=== PATIENT | male | born 1975 | race Hispanic/Latino ===

== ENCOUNTER 2019-03-17 20:56 | Emergency (ER) | payer OTHER ==
[2019-03-17] MEDS ORDERED: ONDANSETRON HCL 4 MG/2 ML VIAL ONE (21:10)
[2019-03-17] MEDS ORDERED: SODIUM CHLORIDE 0.9% 1000ML 1,000 ML IV ONE ×2 (21:10→22:32)
[2019-03-17 21:26] LABS: BASOPHILS % (AUTO) 0.7 % (0.0-5.0); EOSINOPHILS % (AUTO) 0.8 % (0.0-8.0); HEMATOCRIT 36.2 % (42-54); LYMPHOCYTES % (AUTO) 27.4 % (21.0-51.0); MEAN CORPUSCULAR HEMOGLOBIN 29.4 pg (27.0-33.0); MEAN CORPUSCULAR HGB CONC 33.9 g/dL (32.0-36.0); MEAN CORPUSCULAR VOLUME 86.8 fL (79-99); MONOCYTES % (AUTO) 9.8 % (3.0-13.0); NEUTROPHILS % (AUTO) 61.3 % (40.0-77.0); NUCLEATED RED BLOOD CELLS 0.1 % (0.0-0.19); PLATELET COUNT (AUTO) 133 K/uL (130-400); RED BLOOD CELL COUNT(AUTO) 4.17 MIL/uL (4.50-6.20); RED CELL DISTRIBUTION WIDTH 19.7 % (11.0-15.5); WHITE BLOOD COUNT (AUTO) 4.1 K/uL (4.8-10.8)
[2019-03-17 21:38] LABS: CREATININE 1.1 mg/dL (0.5-1.5); POTASSIUM 3.4 mmol/L (3.5-5.1)
[2019-03-17 21:43] LABS: ALBUMIN 3.6 g/dL (3.5-5.0); BILIRUBIN,TOTAL 0.6 mg/dL (0.2-1.0); TOTAL PROTEIN, SERUM 7.8 g/dL (6.0-8.3)
[2019-03-17 22:16] LABS: APPEARANCE,URINE Clear (CLEAR); BILIRUBIN,URINE Small (NEGATIVE); COLOR,URINE Dark Yellow (YELLOW); GLUCOSE, URINE (UA) Negative (NEGATIVE); KETONES,URINE Trace mg/dL (NEGATIVE); LEUKOCYTE ESTERASE ,URINE Negative (NEGATIVE); NITRATE,URINE Negative (NEGATIVE); OCCULT BLOOD,URINE Negative (NEGATIVE); PROTEIN,URINE Trace mg/dL (NEGATIVE)
[2019-03-17] MEDS ORDERED: KETOROLAC TROMETHAMINE 15MG/ML ONE (22:30)
[2019-03-17 22:46] LABS: BACTERIA,URINE None Seen /HPF (None Seen); RBC,URINE None Seen /HPF (0-1); WBC,URINE None Seen /HPF (0-1)
[2019-03-17 22:47] LABS: MUCUS,URINE Rare LPF (None Seen); SQUAMOUS EPITHELIAL CELL,UR Few /HPF (0-2)
== END 2019-03-17 23:36 | disposition home or self-care (01) ==
LOC: EDH 20:56
DX: R10.12 Left upper quadrant pain (principal); F10.10 Alcohol abuse, uncomplicated; I10 Essential (primary) hypertension; R11.2 Nausea with vomiting, unspecified; Y90.9 Presence of alcohol in blood, level not specified
CPT/HCPCS: 36415; 80053; 81001; 83690; 85025; 96361; 96374; 96375; 99285; J1885; J2405; J7030 ×2

== ENCOUNTER 2020-03-26 20:03 | Inpatient (IN) | payer OTHER ==
[~2020-03-26] VITALS: Ht 182.9 cm; Wt 89.8 kg
[2020-03-26 20:46] LABS: BASOPHILS % (AUTO) 0.3 % (0.0-5.0); EOSINOPHILS % (AUTO) 0.6 % (0.0-8.0); HEMATOCRIT 22.8 % (42-54); LYMPHOCYTES % (AUTO) 13.9 % (21.0-51.0); MEAN CORPUSCULAR HEMOGLOBIN 35.3 pg (27.0-33.0); MEAN CORPUSCULAR HGB CONC 33.8 g/dL (32.0-36.0); MEAN CORPUSCULAR VOLUME 104.6 fL (79-99); MONOCYTES % (AUTO) 7.7 % (3.0-13.0); NEUTROPHILS % (AUTO) 76.4 % (40.0-77.0); PLATELET COUNT (AUTO) 86 K/uL (130-400); RED BLOOD CELL COUNT(AUTO) 2.18 MIL/uL (4.50-6.20); RED CELL DISTRIBUTION WIDTH 20.6 % (11.0-15.5); WHITE BLOOD COUNT (AUTO) 7.9 K/uL (4.8-10.8)
[2020-03-26 21:04] LABS: CREATININE 0.6 mg/dL (0.5-1.5); POTASSIUM 3.6 mmol/L (3.5-5.1)
[2020-03-26 21:11] LABS: BILIRUBIN,TOTAL 13.2 mg/dL (0.2-1.0); TOTAL PROTEIN, SERUM 5.8 g/dL (6.0-8.3)
[2020-03-26] MEDS ORDERED: SODIUM CHLORIDE 0.9% 100 ML IV ONE (21:39)
[2020-03-26 21:42] LABS: INR 1.16 (0.85-1.15); PARTIAL THROMBOPLASTIN TIME 31.4 SEC (26.3-35.5); PROTHROMBIN TIME 12.5 SEC (9.6-11.6)
[2020-03-26] MEDS ORDERED: PHYTONADIONE 10 MG/1 ML AMP ONE (21:56)
[2020-03-26] MEDS ORDERED: ONDANSETRON HCL 4 MG/2 ML VIAL IV PRN (22:30)
[2020-03-26] MEDS ORDERED: HYDRALAZINE HCL 20 MG/ML VIAL IV PRN (22:45)
[2020-03-27] VITALS (7 sets, daily range): BP systolic 93–127; BP diastolic 52–85
[2020-03-27] MEDS ORDERED: denies home meds (05:15)
[2020-03-27] MEDS: PANTOPRAZOLE SODIUM 80 MG in SODIUM CHLORIDE 0.9% 100 ML IV SCH ×4 (07:02→20:00)
[2020-03-27 07:22] LABS: APPEARANCE,URINE CLEAR (CLEAR); BILIRUBIN,URINE LARGE (NEGATIVE); COLOR,URINE ORANGE (YELLOW); GLUCOSE, URINE (UA) NEGATIVE (NEGATIVE); KETONES,URINE NEGATIVE (NEGATIVE); LEUKOCYTE ESTERASE ,URINE NEGATIVE (NEGATIVE); NITRATE,URINE NEGATIVE (NEGATIVE); OCCULT BLOOD,URINE NEGATIVE (NEGATIVE); PH,URINE 6.5 (5.0-8.0); PROTEIN,URINE NEGATIVE (NEGATIVE)
[2020-03-27 07:34] LABS: BACTERIA,URINE Rare /HPF (None Seen); RBC,URINE 0-1 /HPF (0-1); SQUAMOUS EPITHELIAL CELL,UR Rare /HPF (0-2); WBC,URINE 0-1 /HPF (0-1)
[2020-03-27 08:08] LABS: HEMATOCRIT 23.9 % (42-54)
--- NOTE | 2020-03-27 08:30 | NUR ---
PT CONSULT CALLED TO DR. BLANQUITA RINCON RN REGISTRY. WILL AWAIT RESPONSE. PT AT PRESENT IS OFFERING N/C AND WILL AWAIT FOR FURTHER ORDERS. PT IS NOT HAVING ANY BLOODY EMESIS OR STOOLS.
[2020-03-27] MEDS: LACTULOSE 20 GM/30 ML UDCUP PO SCH ×2 (09:00→21:23)
--- NOTE | 2020-03-27 09:45 | NUR ---
DR. JUARES CALLED ABOUT CONSULT AND WAS ADVISED ABOUT PATIENT'S DISCHARGE FROM OTHER FACILITY AND HISTORY OF PRIOR EGD. DR. JUARES WAS GOING TO SEE IF HE COULD GET THE RECORDS FROM OTHER FACILITY AND WOULD CALL BACK IF NEED TO.
[2020-03-27] MEDS ORDERED: MORPHINE SULFATE 2 MG/ML 1ML SYG IVP SCH (10:15)
[2020-03-27] MEDS: OCTREOTIDE ACETATE 1,250 MCG in SODIUM CHLORIDE 0.9% 250 ML IV SCH (11:02)
--- NOTE | 2020-03-27 11:49 | NUR ---
CHART CHECK COMPLETED. Pt IS A 44 Y.O. MALE ADMITTED SECONDARY TO LIVER CIRRHOSIS AND GBW. Pt HAS A PAST MEDICAL HISTORY SIGNIFICANT FOR PANCREATITIS, HYPERTENSION, ESOPHAGEAL VARICES, EGD 3 MONTHS AGO. Pt CURRENTLY NPO DUE TO ADMITTING DIAGNOSIS. PLEASE REQUEST A FORMAL SPEECH/SWALLOW EVALUATION IF Pt PRESENTS WITH +S/S OF ASPIRATION SUCH COUGH RESPONSE, THROAT CLEAR OR WET VOCAL QUALITY AT MEAL TIMES. Addendum: 03/27/20 at 1153 by PAOLA MAGANA, [facility] Amended: Links added.
[2020-03-27 13:01] LABS: HEMATOCRIT 25.4 % (42-54)
--- NOTE | 2020-03-27 18:00 | NUR ---
THERE HAS BEEN NO FURTHER RESPONSE OR ORDERS NOTED FROM DR. JUARES. PT HAD BEEN STARTED ON SANDOSTATIN DRIP EARLIER PER Aviva HESS NP.
--- NOTE | 2020-03-27 19:30 | NUR ---
ASSESSMENT PT AAOX4, COOPERATIVE, FOLLOWS COMMANDS. PERRLA,SCLERA JAUNDICED. SANDOSTATIN AND PROTONIX INFUSING WITHOUT DIFFICULTY. SCD'S PENDING. GBW REMAINS. HAND TREMORS NOTED. ASSESSMENT COMPLETED, SEE FLOW SHEET.
[2020-03-27 20:22] LABS: HEMATOCRIT 23.6 % (42-54)
[2020-03-28] MEDS: PANTOPRAZOLE SODIUM 80 MG in SODIUM CHLORIDE 0.9% 100 ML IV SCH ×2 (01:58→20:46)
[2020-03-28 03:27] VITALS: BP 120/80
[2020-03-28 05:10] LABS: BASOPHILS % (AUTO) 0.3 % (0.0-5.0); EOSINOPHILS % (AUTO) 0.4 % (0.0-8.0); HEMATOCRIT 21.3 % (42-54); LYMPHOCYTES % (AUTO) 8.2 % (21.0-51.0); MEAN CORPUSCULAR HEMOGLOBIN 35.6 pg (27.0-33.0); MEAN CORPUSCULAR HGB CONC 33.8 g/dL (32.0-36.0); MEAN CORPUSCULAR VOLUME 105.4 fL (79-99); PLATELET COUNT (AUTO) 71 K/uL (130-400); RED BLOOD CELL COUNT(AUTO) 2.02 MIL/uL (4.50-6.20); WHITE BLOOD COUNT (AUTO) 7.9 K/uL (4.8-10.8)
[2020-03-28 05:39] LABS: ALBUMIN 1.9 g/dL (3.5-5.0); CREATININE 0.8 mg/dL (0.5-1.5); POTASSIUM 4.2 mmol/L (3.5-5.1); TOTAL PROTEIN, SERUM 5.7 g/dL (6.0-8.3)
[2020-03-28 05:43] LABS: BILIRUBIN,TOTAL 18.5 mg/dL (0.2-1.0)
--- NOTE | 2020-03-28 07:00 | NUR ---
REPORT BEDSIDE REPORT GIVEN SJ RN, CHART REVIEWED.
[2020-03-28 07:40] VITALS: BP 104/66
[2020-03-28] MEDS: LACTULOSE 20 GM/30 ML UDCUP PO SCH ×2 (09:00→20:45)
[2020-03-28 10:31] LABS: HEMATOCRIT 22.4 % (42-54)
[2020-03-28 11:30] VITALS: BP 105/71
[2020-03-28] MEDS: CEFTRIAXONE SODIUM 1 GM IVP SCH ×2 (11:35→22:00)
--- NOTE | 2020-03-28 12:56 | NUR ---
DC PLAN VISITED WITH PATIENT. PATIENT LIVES ALONE. INDEPENDENT ABLE TO PERFORM ADL'S. PATIENT HAS NO SERVICES OR DME'S. FEELS SAFE TO RETURN HOME. SAID HE WILL USE THE BUS TO GO TO HOME. Addendum: 03/28/20 at 1258 by MEENU TAM RN CM Amended: Links added.
[2020-03-28 16:00] VITALS: BP 115/78
[2020-03-28 16:28] LABS: HEMATOCRIT 22.4 % (42-54)
[2020-03-28 20:06] VITALS: BP 101/62
[2020-03-28 21:54] LABS: HEMATOCRIT 23.4 % (42-54)
[2020-03-28] MEDS: OCTREOTIDE ACETATE 1,250 MCG in SODIUM CHLORIDE 0.9% 250 ML IV SCH (21:54)
[2020-03-28] MEDS: LACTATED RINGERS 1000ML 1,000 ML IV SCH (21:55)
[2020-03-28 23:00] VITALS: BP 119/80
[2020-03-29] MEDS: PANTOPRAZOLE SODIUM 80 MG in SODIUM CHLORIDE 0.9% 100 ML IV SCH ×2 (01:09→12:00)
[2020-03-29 03:01] VITALS: BP 99/63
[2020-03-29 04:10] LABS: BASOPHILS % (AUTO) 0.4 % (0.0-5.0); EOSINOPHILS % (AUTO) 2.2 % (0.0-8.0); LYMPHOCYTES % (AUTO) 13.2 % (21.0-51.0); MEAN CORPUSCULAR HEMOGLOBIN 36.1 pg (27.0-33.0); MEAN CORPUSCULAR HGB CONC 33.6 g/dL (32.0-36.0); MEAN CORPUSCULAR VOLUME 107.3 fL (79-99); MONOCYTES % (AUTO) 7.5 % (3.0-13.0); NEUTROPHILS % (AUTO) 75.5 % (40.0-77.0); PLATELET COUNT (AUTO) 72 K/uL (130-400); RED BLOOD CELL COUNT(AUTO) 2.05 MIL/uL (4.50-6.20); RED CELL DISTRIBUTION WIDTH 19.9 % (11.0-15.5); WHITE BLOOD COUNT (AUTO) 7.4 K/uL (4.8-10.8)
[2020-03-29 04:53] LABS: ALBUMIN 1.9 g/dL (3.5-5.0); POTASSIUM 3.4 mmol/L (3.5-5.1); TOTAL PROTEIN, SERUM 5.8 g/dL (6.0-8.3)
[2020-03-29 05:41] LABS: BILIRUBIN,TOTAL 19.3 mg/dL (0.2-1.0)
--- NOTE | 2020-03-29 07:05 | NUR ---
REPORT REPORT GIVEN TO SALEEM ARROYO
[2020-03-29 08:44] VITALS: BP 121/85
[2020-03-29 12:01] VITALS: BP 120/78
[2020-03-29] MEDS: CEFTRIAXONE SODIUM 1 GM IVP SCH (12:59)
[2020-03-29] MEDS: LACTULOSE 20 GM/30 ML UDCUP PO SCH (13:00)
[2020-03-29] MEDS: LACTATED RINGERS 1000ML 1,000 ML IV SCH (13:07)
[2020-03-29] MEDS ORDERED: LACTULOSE 20 GM/30 ML UDCUP PO SCH (13:30)
--- NOTE | 2020-03-29 13:47 | NUR ---
DR. BRADY IN ROOM SPEAKING WITH PT. RE:PLAN OF CARE AND DISCHARGE DISPOSITION. QUESTIONS ANSWERED BY DR. BRADY.
[2020-03-29] MEDS ORDERED: PANT40TA PO (14:52)
[2020-03-29] MEDS ORDERED: LACT10SO9 PO (14:52)
[2020-03-29] MEDS ORDERED: FERS325 PO (14:52)
--- NOTE | 2020-03-29 15:35 | NUR ---
HL REMOVED, CATHETER INTACT. DISCHARGE INSTRUCTIONS GIVEN, VERBALIZED UNDERSTANDING.
== END 2020-03-29 17:02 | disposition home or self-care (01) | DRG 434 ==
LOC: EDH 20:03 → OBSVTOIN 20:04 → EDHIP 20:04 → DAHIP 23:52
PROVIDERS: ADMIT Hospitalist; ATTEND Hospitalist
DX: K70.30 Alcoholic cirrhosis of liver without ascites (principal); D64.9 Anemia, unspecified; I10 Essential (primary) hypertension; D69.6 Thrombocytopenia, unspecified; R53.81 Other malaise
CPT/HCPCS: 36415; 71045; 76705; 80053; 81001; 82140; 82270; 83690; 83880; 85014; 85018; 85025; 85610; 85730; 86850; 86900; 86901; 87088; C9113; G0378; J0696; J2354; J3430; J7050

== ENCOUNTER 2020-05-14 20:29 | Inpatient (IN) | payer OTHER ==
[~2020-05-14] VITALS: Ht 182.9 cm; Wt 88.5 kg
[~2020-05-14 20:29] MED LIST: FERS325 PO; LACT10SO9 PO; PANT40TA PO; denies home meds
[2020-05-14 21:12] LABS: BASOPHILS % (AUTO) 0.3 % (0.0-5.0); EOSINOPHILS % (AUTO) 4.1 % (0.0-8.0); HEMATOCRIT 21.9 % (42-54); LYMPHOCYTES % (AUTO) 42.6 % (21.0-51.0); MEAN CORPUSCULAR HGB CONC 32.9 g/dL (32.0-36.0); MEAN CORPUSCULAR VOLUME 97.3 fL (79-99); MONOCYTES % (AUTO) 8.7 % (3.0-13.0); PLATELET COUNT (AUTO) 50 K/uL (130-400); RED BLOOD CELL COUNT(AUTO) 2.25 MIL/uL (4.50-6.20); RED CELL DISTRIBUTION WIDTH 19.6 % (11.0-15.5); WHITE BLOOD COUNT (AUTO) 3.5 K/uL (4.8-10.8)
[2020-05-14 21:38] LABS: CARBON DIOXIDE 17 mmol/L (21-32); CHLORIDE 108 mmol/L (101-111); GLOMERULAR FILTR. RATE CALC 86 mL/min (>60); GLUCOSE,RANDOM 109 mg/dL (70-105); INR 1.38 (0.85-1.15); PARTIAL THROMBOPLASTIN TIME 31.1 SEC (26.3-35.5); POTASSIUM 3.7 mmol/L (3.5-5.1); PROTHROMBIN TIME 14.7 SEC (9.6-11.6); SODIUM SERUM 137 mmol/L (136-145); UREA NITROGEN, BLOOD 8 mg/dL (7-18)
[2020-05-14 21:53] LABS: ALANINE AMINOTRANSFERASE 6 U/L (12-78); ALBUMIN 1.9 g/dL (3.5-5.0); ASPARTATE AMINOTRANSFERASE 65 U/L (10-37); BILIRUBIN,TOTAL 2.3 mg/dL (0.2-1.0); CREATINE KINASE, TOTAL 48 U/L (21-232); MYOGLOBIN 15 ng/mL (10-92); TOTAL PROTEIN, SERUM 6.3 g/dL (6.0-8.3); TROPONIN I < 0.04 ng/mL (0.00-0.06)
[2020-05-14 21:55] LABS: AMMONIA 108 umol/L (11-32)
[2020-05-14 22:15] LABS: APPEARANCE,URINE Clear (CLEAR); BILIRUBIN,URINE Negative (NEGATIVE); COLOR,URINE Yellow (YELLOW); GLUCOSE, URINE (UA) Negative (NEGATIVE); KETONES,URINE Negative (NEGATIVE); LEUKOCYTE ESTERASE ,URINE Negative (NEGATIVE); NITRATE,URINE Negative (NEGATIVE); OCCULT BLOOD,URINE Negative (NEGATIVE); PROTEIN,URINE Negative (NEGATIVE)
[2020-05-14] MEDS ORDERED: LACTULOSE 20 GM/30 ML UDCUP ONE (22:43)
[2020-05-14] MEDS ORDERED: PANTOPRAZOLE 40 MG/VIAL ONE (22:44)
[2020-05-14] MEDS ORDERED: ONDANSETRON HCL 4 MG/2 ML VIAL IV PRN (23:00)
[2020-05-14] MEDS ORDERED: ACETAMINOPHEN 325 MG TAB PO PRN (23:00)
[2020-05-15] MEDS ORDERED: SODIUM CHLORIDE 0.9% 250 ML IV ONE (01:16)
[2020-05-15] MEDS ORDERED: FUROSEMIDE 10 MG/ML 2ML VIAL ONE ×2 (01:36→12:32)
[2020-05-15 04:37] LABS: AMPHET/METH SCREEN,URINE NEGATIVE (NEGATIVE); BARBITURATE SCREEN, URINE NEGATIVE (NEGATIVE); BENZODIAZEPINES SCREEN,URINE NEGATIVE (NEGATIVE); CANNABINOID SCREEN,URINE NEGATIVE (NEGATIVE); COCAINE SCREEN,URINE NEGATIVE (NEGATIVE); OPIATE SCREEN,URINE NEGATIVE (NEGATIVE); PHENCYCLIDINE SCREEN,URINE NEGATIVE (NEGATIVE)
[2020-05-15 07:00] LABS: HEMATOCRIT 27.3 % (42-54); MEAN CORPUSCULAR HEMOGLOBIN 32.4 pg (27.0-33.0); MEAN CORPUSCULAR HGB CONC 33.7 g/dL (32.0-36.0); MEAN CORPUSCULAR VOLUME 96.1 fL (79-99); RED BLOOD CELL COUNT(AUTO) 2.84 MIL/uL (4.50-6.20); RED CELL DISTRIBUTION WIDTH 18.9 % (11.0-15.5); WHITE BLOOD COUNT (AUTO) 3.1 K/uL (4.8-10.8)
[2020-05-15 07:22] LABS: BILIRUBIN,TOTAL 2.9 mg/dL (0.2-1.0); CREATININE 0.9 mg/dL (0.5-1.5); POTASSIUM 3.5 mmol/L (3.5-5.1); TOTAL PROTEIN, SERUM 7.1 g/dL (6.0-8.3)
[2020-05-15] MEDS ORDERED: THIAMINE HCL 100 MG TABLET ONE (08:17)
[2020-05-15] MEDS ORDERED: LACTULOSE 20 GM/30 ML UDCUP ONE ×2 (08:17→20:55)
[2020-05-15] MEDS ORDERED: FAMOTIDINE/PF 20 MG/2 ML VIAL IV ONE ×2 (08:17→20:56)
[2020-05-15] MEDS ORDERED: MULTIVITAMINS W-IRON 50 ML DROPS PO SCH (09:00)
[2020-05-15] MEDS: FOLIC ACID 1 MG TABLET PO SCH (09:00)
[2020-05-15] MEDS: FE FUMARATE/FA/MV, MIN COMB#15 1 TAB PO SCH (09:00)
[2020-05-15] MEDS: THIAMINE HCL 100 MG TABLET PO SCH (09:00)
--- NOTE | 2020-05-15 12:53 | NUR ---
DC Plan Received call from Mehdi Arenas RN. States made call to point of contact on face sheet, Satish Dueñas ph: [phone], to provide update on patient due to PUI status. Per conversation with Satish Dueñas, Mehdi Arenas RN reported to that Satish is a database dba and is able to assist in providing retirement to patient if COVID test is negative. CD
--- NOTE | 2020-05-15 14:40 | NUR ---
CM NOTE/IA UNABLE TO MEET WITH PATIENT, NEXT OF KIN CALLED, DANIELLE SERNA. PER ROTARY BAR OPERATOR, PATIENT IS HOMELESS AND HASNT SEEN HIM IN YEARS. LAST HE SAW, PATIENT WAS INDEPENDENT WITH ADLS, HOMELESS, NO USE OF DME. PER ROTARY BAR OPERATOR, IF PATIENT IS COVID19 NEGATIVE, WILL HAVE A ROOM FOR PATIENT WHEN DISCHARGED FROM HOSPITAL. INFORMATION DEFERRED TO BOOKKEEPING CLERK AND CM ASSIGNED TO PATIENT. Addendum: 05/16/20 at 1009 by CAITY HARRY RN CM Amended: Links added.
[2020-05-15] MEDS ORDERED: POTASSIUM CHLORIDE 20MEQ/100ML 100 ML IV PRN (15:15)
[2020-05-15] MEDS ORDERED: POTASSIUM CHLORIDE 10% ELIXIR 20 MEQ/15 ML UDCUP PO PRN (15:15)
[2020-05-15] MEDS ORDERED: LIDOCAINE HCL-MPF 1% 2ML VIAL IJ PRN (15:15)
[2020-05-15] MEDS ORDERED: POTASSIUM CHLORIDE 20 MEQ ERTAB PO SCH (16:30)
[2020-05-15] MEDS: LACTULOSE 20 GM/30 ML UDCUP PO SCH (21:00)
[2020-05-15] MEDS: FAMOTIDINE/PF 20 MG/2 ML VIAL IV SCH (21:00)
[2020-05-16] MEDS ORDERED: FUROSEMIDE 10 MG/ML 2ML VIAL ONE (00:24)
[2020-05-16] MEDS ORDERED: ONDANSETRON HCL 4 MG/2 ML VIAL ONE (00:25)
[2020-05-16] MEDS: FUROSEMIDE 10 MG/ML 2ML VIAL IV SCH ×2 (00:45→12:54)
[2020-05-16 03:40] VITALS: BP 115/68
[2020-05-16 06:57] LABS: HEMATOCRIT 24.5 % (42-54); MEAN CORPUSCULAR HEMOGLOBIN 32.3 pg (27.0-33.0); MEAN CORPUSCULAR HGB CONC 33.9 g/dL (32.0-36.0); MEAN CORPUSCULAR VOLUME 95.3 fL (79-99); PLATELET COUNT (AUTO) 44 K/uL (130-400); RED BLOOD CELL COUNT(AUTO) 2.57 MIL/uL (4.50-6.20); RED CELL DISTRIBUTION WIDTH 19.3 % (11.0-15.5); WHITE BLOOD COUNT (AUTO) 2.4 K/uL (4.8-10.8)
[2020-05-16 07:08] LABS: ALBUMIN 1.7 g/dL (3.5-5.0); ASPARTATE AMINOTRANSFERASE 44 U/L (10-37); BILIRUBIN,TOTAL 3.2 mg/dL (0.2-1.0); CARBON DIOXIDE 22 mmol/L (21-32); CHLORIDE 108 mmol/L (101-111); GLOMERULAR FILTR. RATE CALC 86 mL/min (>60); GLUCOSE,RANDOM 98 mg/dL (70-105); PHOSPHORUS 3.6 mg/dL (2.5-4.9); SODIUM SERUM 139 mmol/L (136-145); TOTAL PROTEIN, SERUM 5.9 g/dL (6.0-8.3); UREA NITROGEN, BLOOD 11 mg/dL (7-18)
[2020-05-16 07:10] LABS: ALANINE AMINOTRANSFERASE < 6 U/L (12-78); AMMONIA 72 umol/L (11-32)
[2020-05-16 07:11] LABS: POTASSIUM 2.9 mmol/L (3.5-5.1)
[2020-05-16 07:27] LABS: BAND NEUTROPHILS % (MANUAL) 1 % (0-2); EOSINOPHILS % (MANUAL) 3 % (1-6); LYMPHOCYTES % (MANUAL) 29 % (22-44); MAN.DIFF COMMENT-IMPRESSION MANUAL DIFFERENTIAL; MONOCYTES % (MANUAL) 8 % (2-9); PLATELET MORPHOLOGY COMMENT MARKED DECREASE; SEGMENTED NEUTROPHILS % 59 % (40-70)
[2020-05-16 08:00] VITALS: BP 110/62
[2020-05-16] MEDS: FE FUMARATE/FA/MV, MIN COMB#15 1 TAB PO SCH (09:26)
[2020-05-16] MEDS: FAMOTIDINE/PF 20 MG/2 ML VIAL IV SCH ×2 (09:26→20:33)
[2020-05-16] MEDS: FOLIC ACID 1 MG TABLET PO SCH (09:26)
[2020-05-16] MEDS: POTASSIUM CHLORIDE 20 MEQ ERTAB PO PRN ×4 (09:26→18:58)
[2020-05-16] MEDS: LACTULOSE 20 GM/30 ML UDCUP PO SCH ×2 (09:26→20:33)
[2020-05-16] MEDS: THIAMINE HCL 100 MG TABLET PO SCH (09:26)
[2020-05-16 11:00] VITALS: BP 117/70
[2020-05-16 16:00] VITALS: BP 114/67
[2020-05-16 19:52] VITALS: BP 105/68
[2020-05-16 23:58] VITALS: BP 105/71
[2020-05-17] MEDS: FUROSEMIDE 10 MG/ML 2ML VIAL IV SCH ×2 (00:50→12:46)
[2020-05-17 04:00] VITALS: BP 94/57
[2020-05-17 04:17] LABS: BASOPHILS % (AUTO) 0.5 % (0.0-5.0); EOSINOPHILS % (AUTO) 3.6 % (0.0-8.0); HEMATOCRIT 24.3 % (42-54); LYMPHOCYTES % (AUTO) 40.5 % (21.0-51.0); MEAN CORPUSCULAR HGB CONC 33.3 g/dL (32.0-36.0); MONOCYTES % (AUTO) 12.3 % (3.0-13.0); NEUTROPHILS % (AUTO) 42.2 % (40.0-77.0); PLATELET COUNT (AUTO) 38 K/uL (130-400); RED BLOOD CELL COUNT(AUTO) 2.53 MIL/uL (4.50-6.20); RED CELL DISTRIBUTION WIDTH 18.5 % (11.0-15.5); WHITE BLOOD COUNT (AUTO) 2.2 K/uL (4.8-10.8)
[2020-05-17 04:27] LABS: ALBUMIN 1.6 g/dL (3.5-5.0); BILIRUBIN,TOTAL 2.6 mg/dL (0.2-1.0); MAGNESIUM 1.7 mg/dL (1.80-2.40); POTASSIUM 3.7 mmol/L (3.5-5.1); TOTAL PROTEIN, SERUM 5.7 g/dL (6.0-8.3)
[2020-05-17 08:32] VITALS: BP 115/74
[2020-05-17] MEDS ORDERED: LACT10SO9 PO (08:33)
[2020-05-17] MEDS: FE FUMARATE/FA/MV, MIN COMB#15 1 TAB PO SCH (08:51)
[2020-05-17] MEDS: THIAMINE HCL 100 MG TABLET PO SCH (08:51)
[2020-05-17] MEDS: LACTULOSE 20 GM/30 ML UDCUP PO SCH ×2 (08:51→15:18)
[2020-05-17] MEDS: FAMOTIDINE/PF 20 MG/2 ML VIAL IV SCH (08:51)
[2020-05-17] MEDS: FOLIC ACID 1 MG TABLET PO SCH (08:51)
[2020-05-17 11:23] VITALS: BP 100/62
--- NOTE | 2020-05-17 18:50 | NUR ---
PATIENT MADE CALL TO CONTACT # HIS YARD INSPECTOR IN THE CHART- TOLD PRIMARY NURSE AND ASH JERNIGAN THE DID NOT WANT TO HAVE HIGH RISK OB PICK HIM UP THAT HE WANTED TO GO TO [place], THAT HE" HAS A PLACE' HE CAN STAY. STATES WILL WALK TO THE BUS STOP AND THEN ITS A FREE SHUTTLE TO [place]. PT IS ALERT, ORIENTED, AND MOBILE,COULD BE HEARD TALKING THE THE 'YARD INSPECTOR ONT HE PHONE FROM HIS ROM RE HIS DISCHARGE PLANS Addendum: 05/17/20 at 1853 by ZOILA AMES RN CM Amended: Links added.
== END 2020-05-17 15:30 | disposition home or self-care (01) | DRG 433 ==
LOC: EDH 20:29 → EDHIP 20:30 → 3BH 05-16 02:43
PROVIDERS: ADMIT Internal Medicine; ATTEND Internal Medicine
PROC: 30233N1 Transfusion of Nonautologous Red Blood Cells into Peripheral Vein, Percutaneous Approach (ICD-10-PCS; principal; 2020-05-15)
DX: K70.30 Alcoholic cirrhosis of liver without ascites (principal); D62 Acute posthemorrhagic anemia; K72.90 Hepatic failure, unspecified without coma; K72.10 Chronic hepatic failure without coma; E87.6 Hypokalemia; Z91.19 Patient's noncompliance with other medical treatment and regimen; I10 Essential (primary) hypertension; D69.59 Other secondary thrombocytopenia; Z20.828 Contact with and (suspected) exposure to other viral communicable diseases
CPT/HCPCS: 36415; 71045; 80053; 80305; 81003; 82140; 82270; 82550; 83605; 83735; 83874; 84100; 84145; 84484; 85025; 85027; 85610; 85730; 86850; 86900; 86901; 86922; 87040; 87088; 93005; C9113; G0378; J1940; J2405; J3490; J7050; P9016; U0003

== ENCOUNTER 2020-08-25 21:40 | Emergency (ER) | payer MEDICAID, OTHER ==
[2020-08-25 21:56] LABS: HEMATOCRIT 26.5 % (42-54); LYMPHOCYTES % (AUTO) 37.3 % (21.0-51.0); MEAN CORPUSCULAR HEMOGLOBIN 29.1 pg (27.0-33.0); MEAN CORPUSCULAR HGB CONC 32.8 g/dL (32.0-36.0); MEAN CORPUSCULAR VOLUME 88.6 fL (79-99); MONOCYTES % (AUTO) 9.5 % (3.0-13.0); NEUTROPHILS % (AUTO) 49.9 % (40.0-77.0); PLATELET COUNT (AUTO) 62 K/uL (130-400); RED BLOOD CELL COUNT(AUTO) 2.99 MIL/uL (4.50-6.20); WHITE BLOOD COUNT (AUTO) 3.1 K/uL (4.8-10.8)
[2020-08-25 22:06] LABS: CREATININE 1.3 mg/dL (0.5-1.5); POTASSIUM 5.8 mmol/L (3.5-5.1)
[2020-08-25 22:10] LABS: ALBUMIN 2.9 g/dL (3.5-5.0); BILIRUBIN,TOTAL 1.8 mg/dL (0.2-1.0); INR 1.39 (0.85-1.15); PARTIAL THROMBOPLASTIN TIME 31.2 SEC (26.3-35.5); PROTHROMBIN TIME 14.8 SEC (9.6-11.6); TOTAL PROTEIN, SERUM 9.2 g/dL (6.0-8.3)
[2020-08-25 22:28] LABS: PLATELET MORPHOLOGY COMMENT DECREASED
[2020-08-26 00:34] LABS: CREATININE 1.2 mg/dL (0.5-1.5); POTASSIUM 3.8 mmol/L (3.5-5.1)
[2020-08-26 01:00] LABS: APPEARANCE,URINE Clear (CLEAR); BILIRUBIN,URINE Negative (NEGATIVE); COLOR,URINE Yellow (YELLOW); GLUCOSE, URINE (UA) Negative (NEGATIVE); KETONES,URINE Negative (NEGATIVE); LEUKOCYTE ESTERASE ,URINE Negative (NEGATIVE); NITRATE,URINE Negative (NEGATIVE); OCCULT BLOOD,URINE Negative (NEGATIVE); PH,URINE 5.5 (5.0-8.0); PROTEIN,URINE Negative (NEGATIVE)
[2020-08-26 01:08] LABS: AMPHET/METH SCREEN,URINE NEGATIVE (NEGATIVE); BARBITURATE SCREEN, URINE NEGATIVE (NEGATIVE); BENZODIAZEPINES SCREEN,URINE NEGATIVE (NEGATIVE); CANNABINOID SCREEN,URINE NEGATIVE (NEGATIVE); COCAINE SCREEN,URINE NEGATIVE (NEGATIVE); OPIATE SCREEN,URINE NEGATIVE (NEGATIVE); PHENCYCLIDINE SCREEN,URINE NEGATIVE (NEGATIVE)
== END 2020-08-26 05:43 | disposition home or self-care (01) ==
LOC: EDH 21:40
DX: K29.70 Gastritis, unspecified, without bleeding (principal); D61.818 Other pancytopenia; K76.89 Other specified diseases of liver; F10.10 Alcohol abuse, uncomplicated; I10 Essential (primary) hypertension; Z72.0 Tobacco use
CPT/HCPCS: 36415; 80048; 80053; 80305; 81003; 82140; 83690; 85025; 85610; 85730

== ENCOUNTER 2021-03-06 21:43 | Emergency (ER) | payer OTHER ==
[~2021-03-06] VITALS: Ht 182.9 cm; Wt 87.1 kg
[2021-03-06 22:02] VITALS: BP 110/66
[2021-03-06 23:53] VITALS: BP 115/62
[2021-03-06 23:58] LABS: BASOPHILS % (AUTO) 1.3 % (0.0-5.0); EOSINOPHILS % (AUTO) 4.2 % (0.0-8.0); HEMATOCRIT 26.1 % (42-54); LYMPHOCYTES % (AUTO) 52.6 % (21.0-51.0); MEAN CORPUSCULAR VOLUME 93.5 fL (79-99); MONOCYTES % (AUTO) 10.1 % (3.0-13.0); NEUTROPHILS % (AUTO) 31.5 % (40.0-77.0); PLATELET COUNT (AUTO) 62 K/uL (130-400); RED BLOOD CELL COUNT(AUTO) 2.79 MIL/uL (4.50-6.20); RED CELL DISTRIBUTION WIDTH 19.7 % (11.0-15.5); WHITE BLOOD COUNT (AUTO) 3.1 K/uL (4.8-10.8)
[2021-03-07 00:07] LABS: CREATININE 1.1 mg/dL (0.5-1.5); POTASSIUM 4.2 mmol/L (3.5-5.1)
[2021-03-07 00:12] LABS: ALBUMIN 2.5 g/dL (3.5-5.0); BILIRUBIN,TOTAL 1.5 mg/dL (0.2-1.0); MAGNESIUM 1.8 mg/dL (1.80-2.40); TOTAL PROTEIN, SERUM 7.2 g/dL (6.0-8.3)
[2021-03-07 00:17] LABS: INR 1.5 (0.85-1.15); PROTHROMBIN TIME 15.8 SEC (9.6-11.6)
[2021-03-07 00:18] LABS: PARTIAL THROMBOPLASTIN TIME 31.3 SEC (26.3-35.5)
[2021-03-07 00:46] LABS: PLATELET MORPHOLOGY COMMENT LARGE PLTS PRESENT
[2021-03-07 00:54] VITALS: BP 115/62
[2021-03-07 01:07] LABS: APPEARANCE,URINE Clear (CLEAR); BILIRUBIN,URINE Negative (NEGATIVE); COLOR,URINE Yellow (YELLOW); GLUCOSE, URINE (UA) Negative (NEGATIVE); KETONES,URINE Negative (NEGATIVE); LEUKOCYTE ESTERASE ,URINE Negative (NEGATIVE); NITRATE,URINE Negative (NEGATIVE); OCCULT BLOOD,URINE Negative (NEGATIVE); PROTEIN,URINE Negative (NEGATIVE); UROBILINOGEN,URINE 0.2 mg/dL (0.2-1.0)
[2021-03-07 02:15] VITALS: BP 112/65
[2021-03-07 03:43] VITALS: BP 118/68
[2021-03-07 07:37] VITALS: BP 110/70
== END 2021-03-07 10:55 | disposition left against medical advice (07) ==
LOC: EDH 21:46
DX: F10.129 Alcohol abuse with intoxication, unspecified (principal); R10.9 Unspecified abdominal pain
CPT/HCPCS: 36415; 80053; 81003; 82140; 82550; 83690; 83735; 83880; 84484; 85025; 85610; 85730; 93005

== ENCOUNTER 2021-07-09 18:11 | Emergency (ER) | payer OTHER ==
[~2021-07-09] VITALS: Ht 180.3 cm; Wt 99.8 kg
[2021-07-09] MEDS ORDERED: HYDROCODONE/ACETAMINOPHEN 5/325 MG TAB PO STA (19:30)
[2021-07-09] MEDS ORDERED: BACITRACIN 28.4 GM OINT TP STA (19:30)
[2021-07-09 20:20] LABS: BASOPHILS % (AUTO) 1.2 % (0.0-5.0); EOSINOPHILS % (AUTO) 2.6 % (0.0-8.0); HEMATOCRIT 24.7 % (42-54); LYMPHOCYTES % (AUTO) 26.4 % (21.0-51.0); MEAN CORPUSCULAR HEMOGLOBIN 32.5 pg (27.0-33.0); MEAN CORPUSCULAR HGB CONC 32.4 g/dL (32.0-36.0); MEAN CORPUSCULAR VOLUME 100.4 fL (79-99); NEUTROPHILS % (AUTO) 56.5 % (40.0-77.0); PLATELET COUNT (AUTO) 42 K/uL (130-400); RED BLOOD CELL COUNT(AUTO) 2.46 MIL/uL (4.50-6.20); RED CELL DISTRIBUTION WIDTH 20.7 % (11.0-15.5); WHITE BLOOD COUNT (AUTO) 3.5 K/uL (4.8-10.8)
[2021-07-09 20:34] LABS: ALBUMIN 2.6 g/dL (3.5-5.0); BILIRUBIN,TOTAL 3.9 mg/dL (0.2-1.0); POTASSIUM 3.9 mmol/L (3.5-5.1); TOTAL PROTEIN, SERUM 7.6 g/dL (6.0-8.3)
[2021-07-09 21:14] LABS: CREATININE 1.1 mg/dL (0.5-1.5)
[2021-07-09 23:10] VITALS: BP 102/64
== END 2021-07-09 23:21 | disposition home or self-care (01) ==
LOC: EDH 18:11
DX: L97.929 Non-pressure chronic ulcer of unspecified part of left lower leg with unspecified severity (principal); L97.919 Non-pressure chronic ulcer of unspecified part of right lower leg with unspecified severity; K70.30 Alcoholic cirrhosis of liver without ascites; D61.818 Other pancytopenia; Z79.899 Other long term (current) drug therapy
CPT/HCPCS: 36415; 80053; 85025

== ENCOUNTER 2021-07-10 15:17 | Inpatient (IN) | payer OTHER ==
[~2021-07-10] VITALS: Ht 180.3 cm; Wt 88.7 kg
[2021-07-10 15:55] LABS: BASOPHILS % (AUTO) 1.2 % (0.0-5.0); EOSINOPHILS % (AUTO) 1.7 % (0.0-8.0); NEUTROPHILS % (AUTO) 64.6 % (40.0-77.0); PLATELET COUNT (AUTO) 52 K/uL (130-400); RED CELL DISTRIBUTION WIDTH 20.3 % (11.0-15.5); WHITE BLOOD COUNT (AUTO) 4.2 K/uL (4.8-10.8)
[2021-07-10 16:04] LABS: CREATININE 1.1 mg/dL (0.5-1.5); POTASSIUM 3.9 mmol/L (3.5-5.1)
[2021-07-10 16:08] LABS: ALBUMIN 2.3 g/dL (3.5-5.0); BILIRUBIN,TOTAL 3.3 mg/dL (0.2-1.0); TOTAL PROTEIN, SERUM 6.8 g/dL (6.0-8.3)
[2021-07-10] MEDS ORDERED: CLINDAMYCIN IVPB 600MG/50ML 50 ML IV SCH (16:30)
[2021-07-10] MEDS ORDERED: 0.9%NACL 1000ML 1,000 ML IV ONE (16:30)
[2021-07-10] MEDS ORDERED: PANTOPRAZOLE 40 MG/VIAL ONE (16:39)
[2021-07-10] MEDS ORDERED: OCTREOTIDE ACETATE 100 MCG/ML AMP IVP ONE (17:00)
[2021-07-10 17:27] LABS: CRP QUANTITATIVE 16.9 mg/L (0.00-9.0)
[2021-07-10 17:35] LABS: INR 1.62 (0.85-1.15); PROTHROMBIN TIME 16.9 SEC (9.6-11.6)
[2021-07-10 17:36] LABS: PARTIAL THROMBOPLASTIN TIME 31.5 SEC (26.3-35.5)
[2021-07-10] MEDS ORDERED: PHYTONADIONE 10 MG in 0.9%NACL 50ML 50 ML IVPB ONE (18:00)
[2021-07-10] MEDS ORDERED: PROMETHAZINE HCL 25 MG/ML 1ML AMPULE IM ONE (18:00)
[2021-07-10] MEDS: OCTREOTIDE ACETATE 1,000 MCG in DEXTROSE 5%-WATER 195 ML IV SCH (18:40)
[2021-07-10] MEDS ORDERED: CHLORDIAZEPOXIDE HCL 25 MG CAP PO PRN (19:00)
[2021-07-10] MEDS ORDERED: PHARMACY COMMUNICATION MISC PRN (19:00)
[2021-07-10] MEDS ORDERED: LORAZEPAM 2 MG/ML 1 ML VIAL IVP PRN (19:00)
[2021-07-10] MEDS ORDERED: PROMETHAZINE HCL 25 MG TABLET PO PRN (19:00)
[2021-07-10 19:24] LABS: HEMATOCRIT 18.1 % (42-54)
[2021-07-10 19:37] LABS: MAGNESIUM 1.5 mg/dL (1.80-2.40); PHOSPHORUS 3.7 mg/dL (2.5-4.9)
[2021-07-10] MEDS ORDERED: MAGNESIUM 2GM PREMIX 50ML 50 ML IV ONE (20:18)
[2021-07-10] MEDS: PANTOPRAZOLE 40MG INJ 80 MG in 0.9%NACL 100ML 100 ML IV SCH (20:20)
[2021-07-10] MEDS: THIAMINE HCL 100 MG, FOLIC ACID 1 MG, M.V.I. IV [ADULT] 10 ML in 0.9%NACL 1000ML 1,000 ML IV SCH (20:20)
[2021-07-10] MEDS: LACTULOSE 20 GM/30 ML UDCUP NG SCH (21:00)
[2021-07-10] MEDS ORDERED: PANTOPRAZOLE 40 MG/VIAL IVP SCH (21:00)
[2021-07-10] MEDS ORDERED: LACTULOSE 20 GM/30 ML UDCUP ONE (21:24)
[2021-07-10] MEDS ORDERED: MAGNESIUM 2GM PREMIX 50ML 50 ML IV PRN (21:30)
[2021-07-10] MEDS ORDERED: ERYTHROMYCIN LACTOBIONATE 250 MG in 0.9%NACL 100ML 100 ML IV ONE (22:30)
[2021-07-10 23:37] LABS: AMPHET/METH SCREEN,URINE NEGATIVE (NEGATIVE); BARBITURATE SCREEN, URINE NEGATIVE (NEGATIVE); BENZODIAZEPINES SCREEN,URINE POSITIVE (NEGATIVE); CANNABINOID SCREEN,URINE NEGATIVE (NEGATIVE); COCAINE SCREEN,URINE NEGATIVE (NEGATIVE); OPIATE SCREEN,URINE NEGATIVE (NEGATIVE); PHENCYCLIDINE SCREEN,URINE NEGATIVE (NEGATIVE)
[2021-07-11] VITALS (12 sets, daily range): BP systolic 132–152; BP diastolic 80–100
[2021-07-11] MEDS: CLINDAMYCIN IVPB 600MG/50ML 50 ML IV SCH ×2 (01:17→09:51)
[2021-07-11] MEDS: PANTOPRAZOLE 40MG INJ 80 MG in 0.9%NACL 100ML 100 ML IV SCH ×2 (04:53→13:47)
[2021-07-11] MEDS: LACTULOSE 20 GM/30 ML UDCUP NG SCH ×3 (06:30→22:00)
[2021-07-11 07:46] LABS: BASOPHILS % (AUTO) 0.8 % (0.0-5.0); EOSINOPHILS % (AUTO) 0.8 % (0.0-8.0); HEMATOCRIT 28.6 % (42-54); LYMPHOCYTES % (AUTO) 13.8 % (21.0-51.0); MEAN CORPUSCULAR HEMOGLOBIN 31.1 pg (27.0-33.0); MEAN CORPUSCULAR HGB CONC 32.9 g/dL (32.0-36.0); MEAN CORPUSCULAR VOLUME 94.7 fL (79-99); PLATELET COUNT (AUTO) 48 K/uL (130-400); RED BLOOD CELL COUNT(AUTO) 3.02 MIL/uL (4.50-6.20); RED CELL DISTRIBUTION WIDTH 19.3 % (11.0-15.5)
[2021-07-11 08:05] LABS: ALBUMIN 2.4 g/dL (3.5-5.0); BILIRUBIN,TOTAL 6.6 mg/dL (0.2-1.0); CREATININE 0.9 mg/dL (0.5-1.5); MAGNESIUM 1.9 mg/dL (1.80-2.40); POTASSIUM 4.2 mmol/L (3.5-5.1); TOTAL PROTEIN, SERUM 6.9 g/dL (6.0-8.3)
[2021-07-11] MEDS ORDERED: CEFTRIAXONE 1G VIAL IVP SCH (12:00)
[2021-07-11] MEDS ORDERED: OCTREOTIDE ACETATE 1,250 MCG in 0.9% NACL 250ML 250 ML IV SCH (13:00)
[2021-07-11] MEDS ORDERED: PHYTONADIONE 10 MG in 0.9%NACL 50ML 50 ML IVPB SCH (13:00)
[2021-07-11] MEDS: OCTREOTIDE ACETATE 1,000 MCG in DEXTROSE 5%-WATER 195 ML IV SCH (13:47)
[2021-07-11] MEDS: CEFTRIAXONE 1G VIAL IVP SCH (13:58)
[2021-07-11 14:21] LABS: INR 1.32 (0.85-1.15)
[2021-07-11 14:23] LABS: PARTIAL THROMBOPLASTIN TIME 31.4 SEC (26.3-35.5)
[2021-07-11 14:42] LABS: HEMATOCRIT 25.2 % (42-54)
[2021-07-11] MEDS ORDERED: PHYTONADIONE 10 MG in 0.9%NACL 50ML 50 ML IVPB ONE (14:45)
[2021-07-11] MEDS ORDERED: HYDROMORPHONE 0.5 MG SYG (0.5MG/0.5ML) ONE (15:03)
[2021-07-11] MEDS: THIAMINE HCL 100 MG, FOLIC ACID 1 MG, M.V.I. IV [ADULT] 10 ML in 0.9%NACL 1000ML 1,000 ML IV SCH (20:00)
[2021-07-11] MEDS: HYDROMORPHONE 0.5 MG SYG (0.5MG/0.5ML) IVP PRN (23:22)
[2021-07-11 23:36] LABS: HEMATOCRIT 22.4 % (42-54)
[2021-07-12] VITALS (23 sets, daily range): BP systolic 114–150; BP diastolic 60–91
[2021-07-12] MEDS: PANTOPRAZOLE 40MG INJ 80 MG in 0.9%NACL 100ML 100 ML IV SCH ×3 (00:35→20:07)
[2021-07-12 04:09] LABS: EOSINOPHILS % (AUTO) 3.9 % (0.0-8.0); HEMATOCRIT 25.8 % (42-54); LYMPHOCYTES % (AUTO) 26.2 % (21.0-51.0); MEAN CORPUSCULAR HEMOGLOBIN 31.6 pg (27.0-33.0); MEAN CORPUSCULAR HGB CONC 32.2 g/dL (32.0-36.0); MEAN CORPUSCULAR VOLUME 98.1 fL (79-99); MONOCYTES % (AUTO) 12.5 % (3.0-13.0); NEUTROPHILS % (AUTO) 56.1 % (40.0-77.0); PLATELET COUNT (AUTO) 44 K/uL (130-400); RED BLOOD CELL COUNT(AUTO) 2.63 MIL/uL (4.50-6.20); RED CELL DISTRIBUTION WIDTH 19.7 % (11.0-15.5); WHITE BLOOD COUNT (AUTO) 3.1 K/uL (4.8-10.8)
[2021-07-12 04:18] LABS: INR 1.32 (0.85-1.15)
[2021-07-12 04:20] LABS: PARTIAL THROMBOPLASTIN TIME 30.3 SEC (26.3-35.5)
[2021-07-12 04:25] LABS: ALBUMIN 2.3 g/dL (3.5-5.0); BILIRUBIN,TOTAL 8.4 mg/dL (0.2-1.0); CREATININE 0.9 mg/dL (0.5-1.5); POTASSIUM 4.3 mmol/L (3.5-5.1)
[2021-07-12] MEDS: LACTULOSE 20 GM/30 ML UDCUP NG SCH ×3 (05:00→20:07)
[2021-07-12] MEDS: HYDROMORPHONE 0.5 MG SYG (0.5MG/0.5ML) IVP PRN ×2 (07:51→19:14)
[2021-07-12 09:13] LABS: HEPATITIS Bs ANTIGEN SCREEN P Negative (Negative)
[2021-07-12] MEDS ORDERED: COMPOUND IV REFRIGERATED 1 EACH IVSOLN MISC PRN (12:00)
[2021-07-12] MEDS: CEFTRIAXONE 1G VIAL IVP SCH (12:39)
[2021-07-12] MEDS ORDERED: FENTANYL CITRATE PF 50 MCG/1 ML 2ML VIAL ONE (14:01)
[2021-07-12] MEDS ORDERED: PROPOFOL 10 MG/ML 20ML VIAL IV ONE (14:01)
[2021-07-12] MEDS ORDERED: MIDAZOLAM HCL 1 MG/ML 2ML VIAL ONE (14:01)
[2021-07-12] MEDS: THIAMINE HCL 100 MG, FOLIC ACID 1 MG, M.V.I. IV [ADULT] 10 ML in 0.9%NACL 1000ML 1,000 ML IV SCH (20:07)
[2021-07-13] VITALS (11 sets, daily range): BP systolic 121–137; BP diastolic 70–88
[2021-07-13] MEDS: HYDROMORPHONE 0.5 MG SYG (0.5MG/0.5ML) IVP PRN ×3 (00:44→19:55)
[2021-07-13 03:50] LABS: HEMATOCRIT 22.6 % (42-54); MEAN CORPUSCULAR HGB CONC 32.7 g/dL (32.0-36.0); MEAN CORPUSCULAR VOLUME 97.8 fL (79-99); RED BLOOD CELL COUNT(AUTO) 2.31 MIL/uL (4.50-6.20); RED CELL DISTRIBUTION WIDTH 18.7 % (11.0-15.5); WHITE BLOOD COUNT (AUTO) 3.6 K/uL (4.8-10.8)
[2021-07-13 04:16] LABS: CREATININE 0.9 mg/dL (0.5-1.5); POTASSIUM 3.8 mmol/L (3.5-5.1)
[2021-07-13] MEDS: LACTULOSE 20 GM/30 ML UDCUP NG SCH ×3 (05:09→19:55)
[2021-07-13] MEDS: PANTOPRAZOLE 40MG INJ 80 MG in 0.9%NACL 100ML 100 ML IV SCH (08:00)
[2021-07-13] MEDS: LEVOFLOXACIN 500 MG TABLET PO SCH (09:31)
[2021-07-13] MEDS: RIFAXIMIN 550 MG TABLET PO SCH ×2 (09:31→19:54)
[2021-07-13] MEDS: PANTOPRAZOLE 40 MG TAB DR PO SCH ×2 (09:31→16:43)
[2021-07-13] MEDS: FOLIC ACID 1 MG TABLET PO SCH (10:33)
[2021-07-13] MEDS: MULTIVITAMIN TABLET PO SCH (10:33)
[2021-07-13] MEDS ORDERED: THIAMINE HCL 100 MG TABLET ONE (19:44)
[2021-07-13] MEDS: THIAMINE HCL 100 MG TABLET PO SCH (19:54)
[2021-07-14] VITALS (7 sets, daily range): BP systolic 116–127; BP diastolic 67–87
[2021-07-14] MEDS: HYDROMORPHONE 0.5 MG SYG (0.5MG/0.5ML) IVP PRN ×3 (03:25→22:56)
[2021-07-14] MEDS: PANTOPRAZOLE 40 MG TAB DR PO SCH ×2 (05:45→16:19)
[2021-07-14] MEDS: MULTIVITAMIN TABLET PO SCH (08:31)
[2021-07-14] MEDS: RIFAXIMIN 550 MG TABLET PO SCH ×2 (08:31→20:54)
[2021-07-14] MEDS: FOLIC ACID 1 MG TABLET PO SCH (08:31)
[2021-07-14] MEDS: LEVOFLOXACIN 500 MG TABLET PO SCH (08:31)
[2021-07-14] MEDS: THIAMINE HCL 100 MG TABLET PO SCH ×2 (08:31→20:53)
[2021-07-14] MEDS: LACTULOSE 20 GM/30 ML UDCUP NG SCH ×2 (08:32→20:52)
[2021-07-14 12:09] LABS: HEMATOCRIT 23.8 % (42-54)
[2021-07-15 04:07] VITALS: BP 117/64
[2021-07-15 07:58] VITALS: BP 117/68
[2021-07-15] MEDS: LEVOFLOXACIN 500 MG TABLET PO SCH (08:13)
[2021-07-15] MEDS: FOLIC ACID 1 MG TABLET PO SCH (08:14)
[2021-07-15] MEDS: LACTULOSE 20 GM/30 ML UDCUP NG SCH (08:14)
[2021-07-15] MEDS: PANTOPRAZOLE 40 MG TAB DR PO SCH (08:14)
[2021-07-15] MEDS: MULTIVITAMIN TABLET PO SCH (08:14)
[2021-07-15] MEDS: RIFAXIMIN 550 MG TABLET PO SCH (08:14)
[2021-07-15] MEDS: THIAMINE HCL 100 MG TABLET PO SCH (08:14)
[2021-07-15 08:40] LABS: BASOPHILS % (AUTO) 0.7 % (0.0-5.0); EOSINOPHILS % (AUTO) 5.8 % (0.0-8.0); HEMATOCRIT 24.1 % (42-54); LYMPHOCYTES % (AUTO) 19.5 % (21.0-51.0); MEAN CORPUSCULAR HEMOGLOBIN 31.6 pg (27.0-33.0); MEAN CORPUSCULAR HGB CONC 32.4 g/dL (32.0-36.0); MEAN CORPUSCULAR VOLUME 97.6 fL (79-99); MONOCYTES % (AUTO) 19.9 % (3.0-13.0); NEUTROPHILS % (AUTO) 53.4 % (40.0-77.0); PLATELET COUNT (AUTO) 52 K/uL (130-400); RED BLOOD CELL COUNT(AUTO) 2.47 MIL/uL (4.50-6.20); RED CELL DISTRIBUTION WIDTH 18.8 % (11.0-15.5); WHITE BLOOD COUNT (AUTO) 2.8 K/uL (4.8-10.8)
[2021-07-15] MEDS ORDERED: LACT10SO9 PO (09:04)
[2021-07-15] MEDS ORDERED: PANT40TA PO (09:04)
[2021-07-15] MEDS ORDERED: CIPR500T10 PO (09:04)
[2021-07-15] MEDS ORDERED: THIA100T91 PO (09:04)
[2021-07-15 09:08] LABS: RETICULOCYTE % (AUTO) 3.6 % (0.42-2.23)
[2021-07-15 09:12] LABS: POTASSIUM 3.9 mmol/L (3.5-5.1)
[2021-07-15 09:13] LABS: INR 1.85 (0.85-1.15); PROTHROMBIN TIME 19.1 SEC (9.6-11.6)
[2021-07-15 09:15] LABS: PARTIAL THROMBOPLASTIN TIME 35.6 SEC (26.3-35.5)
[2021-07-15 09:19] LABS: % IRON SATURATION 13.7 % (30-44)
[2021-07-15 09:26] LABS: ALBUMIN 2.2 g/dL (3.5-5.0); BILIRUBIN,TOTAL 4.6 mg/dL (0.2-1.0); THYROID STIMULATING HORMONE 5.27 uIU/mL (0.36-3.74); TOTAL PROTEIN, SERUM 6.5 g/dL (6.0-8.3)
[2021-07-15] MEDS ORDERED: COMPOUND IV MISC 1 EACH IVSOLN MISC PRN (09:30)
[2021-07-15 09:46] LABS: BAND NEUTROPHILS % (MANUAL) 2 % (0-2); LYMPHOCYTES % (MANUAL) 24 % (22-44); MAN.DIFF COMMENT-IMPRESSION MANUAL DIFFERENTIAL; MONOCYTES % (MANUAL) 11 % (2-9); SEGMENTED NEUTROPHILS % 63 % (40-70)
[2021-07-15 09:47] LABS: PLATELET MORPHOLOGY COMMENT DECREASED
[2021-07-15] MEDS ORDERED: EPOETIN ALFA-EPBX (NON-ESRD) 10,000 UNIT/ML VIAL SQ SCH (10:00)
[2021-07-15 10:24] VITALS: BP 118/67
[2021-07-15] MEDS ORDERED: IRON SUCROSE COMPLEX 500 MG in 0.9% NACL 250ML 250 ML IV SCH (10:30)
[2021-07-15] MEDS: HYDROMORPHONE 0.5 MG SYG (0.5MG/0.5ML) IVP PRN (11:17)
== END 2021-07-15 16:00 | disposition home or self-care (01) | DRG 378 ==
LOC: EDH 15:17 → EDHIP 15:18 → 2DH 07-11 08:46 → 4CH 07-13 11:00
PROVIDERS: ADMIT Hospitalist; ATTEND Hospitalist
PROC: 30233K1 Transfusion of Nonautologous Frozen Plasma into Peripheral Vein, Percutaneous Approach (ICD-10-PCS; principal; 2021-07-10)
PROC: 30233N1 Transfusion of Nonautologous Red Blood Cells into Peripheral Vein, Percutaneous Approach (ICD-10-PCS; 2021-07-10)
PROC: 30233R1 Transfusion of Nonautologous Platelets into Peripheral Vein, Percutaneous Approach (ICD-10-PCS; 2021-07-10)
PROC: 0DJ08ZZ Inspection of Upper Intestinal Tract, Via Natural or Artificial Opening Endoscopic (ICD-10-PCS; 2021-07-12)
DX: K29.01 Acute gastritis with bleeding (principal); D62 Acute posthemorrhagic anemia; K56.609 Unspecified intestinal obstruction, unspecified as to partial versus complete obstruction; K76.6 Portal hypertension; L03.115 Cellulitis of right lower limb; L03.116 Cellulitis of left lower limb; D68.4 Acquired coagulation factor deficiency; D61.818 Other pancytopenia; K31.89 Other diseases of stomach and duodenum; K70.30 Alcoholic cirrhosis of liver without ascites; K72.90 Hepatic failure, unspecified without coma; I10 Essential (primary) hypertension; F32.A Depression, unspecified; Z20.822 Contact with and (suspected) exposure to COVID-19; Y90.8 Blood alcohol level of 240 mg/100 ml or more; F10.229 Alcohol dependence with intoxication, unspecified; K44.9 Diaphragmatic hernia without obstruction or gangrene; K21.00 Gastro-esophageal reflux disease with esophagitis, without bleeding; R16.1 Splenomegaly, not elsewhere classified; D50.9 Iron deficiency anemia, unspecified; F43.10 Post-traumatic stress disorder, unspecified; Z87.891 Personal history of nicotine dependence; Z59.00 Homelessness unspecified; Z82.3 Family history of stroke; Z80.0 Family history of malignant neoplasm of digestive organs
CPT/HCPCS: 36415; 36430; 43235; 71045; 74018; 74176; 80048; 80053; 80305; 82140; 82728; 82948; 83540; 83550; 83735; 83880; 84100; 84145; 84443; 84484; 85014; 85018; 85025; 85027; 85045; 85610; 85730; 86140; 86701; 86804; 86850; 86900; 86901; 86923; 86927; 87040; 87340; 87390; 87522; 87635; 93005; 99291; 99292; A4606; C9113; C9803; G0378; J0696; J1170; J1364; J1756; J2060; J2250; J2354; J2704; J3010; J3411; J3430; J3475; J3490; J7030; J7050; J7060; P9016; P9017; P9034

== ENCOUNTER 2021-08-09 07:55 | Inpatient (IN) | payer MEDICAID, OTHER ==
[~2021-08-09] VITALS: Ht 167.6 cm; Wt 97.8 kg
[~2021-08-09 07:55] MED LIST changes: +CIPR500T10 PO; -FERS325 PO; +THIA100T91 PO; -denies home meds
[2021-08-09 08:43] LABS: EOSINOPHILS % (AUTO) 1.1 % (0.0-8.0); HEMATOCRIT 24.8 % (42-54); LYMPHOCYTES % (AUTO) 19.8 % (21.0-51.0); MEAN CORPUSCULAR HEMOGLOBIN 31.3 pg (27.0-33.0); MEAN CORPUSCULAR HGB CONC 31.5 g/dL (32.0-36.0); MEAN CORPUSCULAR VOLUME 99.6 fL (79-99); MONOCYTES % (AUTO) 12.3 % (3.0-13.0); NEUTROPHILS % (AUTO) 64.2 % (40.0-77.0); PLATELET COUNT (AUTO) 72 K/uL (130-400); RED BLOOD CELL COUNT(AUTO) 2.49 MIL/uL (4.50-6.20); RED CELL DISTRIBUTION WIDTH 19.8 % (11.0-15.5); WHITE BLOOD COUNT (AUTO) 3.6 K/uL (4.8-10.8)
[2021-08-09 09:36] LABS: CREATININE 0.8 mg/dL (0.5-1.5); POTASSIUM 3.4 mmol/L (3.5-5.1)
[2021-08-09 09:41] LABS: ALBUMIN 2.3 g/dL (3.5-5.0); BILIRUBIN,TOTAL 4.3 mg/dL (0.2-1.0)
[2021-08-09] MEDS ORDERED: IOHEXOL-350 75 ML VIAL IV ONE (10:43)
[2021-08-09] MEDS ORDERED: ONDANSETRON 4MG INJ IVP SCH (12:00)
[2021-08-09] MEDS ORDERED: MORPHINE 2 MG SYG IVP SCH ×2 (12:00→19:00)
[2021-08-09] MEDS ORDERED: MORPHINE 2 MG SYG ONE (12:04)
[2021-08-09] MEDS ORDERED: ONDANSETRON 4MG INJ ONE (12:04)
[2021-08-09] MEDS ORDERED: ACETAMINOPHEN 325 MG TAB PO PRN (12:30)
[2021-08-09] MEDS: LACTULOSE 20 GM/30 ML UDCUP PO SCH ×2 (13:00→20:15)
[2021-08-09] MEDS ORDERED: LIDOCAINE HCL-MPF 1% 2ML VIAL IV PRN (13:00)
[2021-08-09] MEDS ORDERED: POTASSIUM CHLORIDE 20MEQ/100ML 100 ML IV PRN (13:00)
[2021-08-09] MEDS: PANTOPRAZOLE 40MG INJ 80 MG in 0.9%NACL 100ML 100 ML IV SCH ×2 (13:53→21:36)
[2021-08-09] MEDS ORDERED: OCTREOTIDE ACETATE 1,250 MCG in 0.9% NACL 250ML 250 ML IV SCH (14:30)
[2021-08-09] MEDS ORDERED: PHARMACY COMMUNICATION MISC PRN ×2 (14:30)
[2021-08-09] MEDS ORDERED: CHLORDIAZEPOXIDE HCL 25 MG CAP PO PRN ×2 (14:30)
[2021-08-09 16:30] LABS: HEMATOCRIT 21.3 % (42-54)
[2021-08-09 16:44] LABS: INR 1.54 (0.85-1.15); PROTHROMBIN TIME 16.1 SEC (9.6-11.6)
[2021-08-09 20:00] VITALS: BP 146/86
[2021-08-10] VITALS (20 sets, daily range): BP systolic 113–166; BP diastolic 75–101
[2021-08-10] MEDS: LACTULOSE 20 GM/30 ML UDCUP PO SCH ×5 (00:42→23:22)
[2021-08-10] MEDS: ONDANSETRON 4MG INJ IV PRN ×2 (00:49→19:49)
[2021-08-10 01:57] LABS: APPEARANCE,URINE Clear (CLEAR); BILIRUBIN,URINE Negative (NEGATIVE); COLOR,URINE Dark Yellow (YELLOW); GLUCOSE, URINE (UA) Negative (NEGATIVE); KETONES,URINE Negative (NEGATIVE); LEUKOCYTE ESTERASE ,URINE Negative (NEGATIVE); NITRATE,URINE Negative (NEGATIVE); OCCULT BLOOD,URINE Negative (NEGATIVE); PROTEIN,URINE Negative (NEGATIVE)
[2021-08-10 02:05] LABS: AMPHET/METH SCREEN,URINE NEGATIVE (NEGATIVE); BARBITURATE SCREEN, URINE NEGATIVE (NEGATIVE); BENZODIAZEPINES SCREEN,URINE NEGATIVE (NEGATIVE); CANNABINOID SCREEN,URINE NEGATIVE (NEGATIVE); COCAINE SCREEN,URINE NEGATIVE (NEGATIVE); OPIATE SCREEN,URINE NEGATIVE (NEGATIVE); PHENCYCLIDINE SCREEN,URINE NEGATIVE (NEGATIVE)
[2021-08-10 05:26] LABS: BASOPHILS % (AUTO) 0.8 % (0.0-5.0); EOSINOPHILS % (AUTO) 0.8 % (0.0-8.0); HEMATOCRIT 23.9 % (42-54); LYMPHOCYTES % (AUTO) 23.2 % (21.0-51.0); MEAN CORPUSCULAR HGB CONC 31.4 g/dL (32.0-36.0); MEAN CORPUSCULAR VOLUME 98.8 fL (79-99); MONOCYTES % (AUTO) 13.1 % (3.0-13.0); NEUTROPHILS % (AUTO) 61.7 % (40.0-77.0); PLATELET COUNT (AUTO) 60 K/uL (130-400); RED BLOOD CELL COUNT(AUTO) 2.42 MIL/uL (4.50-6.20); RED CELL DISTRIBUTION WIDTH 19.1 % (11.0-15.5); WHITE BLOOD COUNT (AUTO) 2.4 K/uL (4.8-10.8)
[2021-08-10 05:33] LABS: ALBUMIN 2.1 g/dL (3.5-5.0); BILIRUBIN,TOTAL 6.3 mg/dL (0.2-1.0); CREATININE 0.9 mg/dL (0.5-1.5); POTASSIUM 4.1 mmol/L (3.5-5.1); TOTAL PROTEIN, SERUM 6.5 g/dL (6.0-8.3)
[2021-08-10 06:28] LABS: BAND NEUTROPHILS % (MANUAL) 11 % (0-2); BASOPHILS % (MANUAL) 2 % (0-2); EOSINOPHILS % (MANUAL) 4 % (1-6); LYMPHOCYTES % (MANUAL) 9 % (22-44); MAN.DIFF COMMENT-IMPRESSION MANUAL DIFFERENTIAL; MONOCYTES % (MANUAL) 4 % (2-9); SEGMENTED NEUTROPHILS % 70 % (40-70)
[2021-08-10 06:29] LABS: PLATELET MORPHOLOGY COMMENT DECREASED
[2021-08-10] MEDS ORDERED: CEFTRIAXONE 1G VIAL IVP SCH (08:30)
[2021-08-10 08:41] LABS: HEMATOCRIT 23.6 % (42-54)
[2021-08-10] MEDS: FOLIC ACID IV SCH (09:17)
[2021-08-10] MEDS: M V I IV SCH (09:17)
[2021-08-10] MEDS: [UNRECOGNIZED DRUG - OTHER] IV SCH (09:17)
[2021-08-10] MEDS: THIAMINE HCL IV SCH (09:17)
[2021-08-10] MEDS: PANTOPRAZOLE 40MG INJ 80 MG in 0.9%NACL 100ML 100 ML IV SCH ×2 (09:20→23:56)
[2021-08-10] MEDS: HYDROMORPHONE 0.5 MG SYG (0.5MG/0.5ML) IVP PRN ×3 (09:30→23:28)
[2021-08-10] MEDS ORDERED: COMPOUND IV REFRIGERATED 1 EACH IVSOLN MISC PRN (09:30)
[2021-08-10] MEDS ORDERED: PROPOFOL 10 MG/ML 20ML VIAL IV ONE (12:02)
[2021-08-10] MEDS: FOLIC ACID 1 MG TABLET PO SCH (14:41)
[2021-08-10] MEDS: THIAMINE HCL 100 MG/ML 2ML VIAL IVP SCH (14:42)
[2021-08-10 16:08] LABS: HEMATOCRIT 23.9 % (42-54)
[2021-08-10] MEDS ORDERED: LORAZEPAM 2 MG/ML 1 ML VIAL IVP PRN (19:30)
[2021-08-10] MEDS: ACETAMINOPHEN 325 MG TAB PO PRN (20:35)
[2021-08-11] VITALS (7 sets, daily range): BP systolic 142–153; BP diastolic 81–96
[2021-08-11] MEDS: ACETAMINOPHEN 325 MG TAB PO PRN (03:10)
[2021-08-11 04:29] LABS: BASOPHILS % (AUTO) 0.4 % (0.0-5.0); EOSINOPHILS % (AUTO) 0.4 % (0.0-8.0); HEMATOCRIT 21.4 % (42-54); LYMPHOCYTES % (AUTO) 9.1 % (21.0-51.0); MEAN CORPUSCULAR HEMOGLOBIN 31.8 pg (27.0-33.0); MEAN CORPUSCULAR HGB CONC 32.7 g/dL (32.0-36.0); MEAN CORPUSCULAR VOLUME 97.3 fL (79-99); MONOCYTES % (AUTO) 6.3 % (3.0-13.0); NEUTROPHILS % (AUTO) 83.4 % (40.0-77.0); PLATELET COUNT (AUTO) 50 K/uL (130-400); RED CELL DISTRIBUTION WIDTH 18.5 % (11.0-15.5); WHITE BLOOD COUNT (AUTO) 7.8 K/uL (4.8-10.8)
[2021-08-11 04:31] LABS: CREATININE 0.9 mg/dL (0.5-1.5); POTASSIUM 3.7 mmol/L (3.5-5.1)
[2021-08-11] MEDS: LACTULOSE 20 GM/30 ML UDCUP PO SCH ×4 (04:45→23:27)
[2021-08-11] MEDS: HYDROMORPHONE 0.5 MG SYG (0.5MG/0.5ML) IVP PRN ×3 (06:08→23:28)
[2021-08-11] MEDS: THIAMINE HCL IV SCH (09:00)
[2021-08-11] MEDS: [UNRECOGNIZED DRUG - OTHER] IV SCH (09:00)
[2021-08-11] MEDS: FOLIC ACID IV SCH (09:00)
[2021-08-11] MEDS: M V I IV SCH (09:00)
[2021-08-11] MEDS: FOLIC ACID 1 MG TABLET PO SCH (09:00)
[2021-08-11] MEDS: THIAMINE HCL 100 MG/ML 2ML VIAL IVP SCH (09:26)
[2021-08-11] MEDS: PANTOPRAZOLE 40 MG/VIAL IVP SCH ×2 (09:27→20:22)
[2021-08-11] MEDS: CEFTRIAXONE 2GM VIAL IVP SCH (17:23)
[2021-08-11 20:38] LABS: HEMATOCRIT 23.8 % (42-54)
[2021-08-12 04:41] VITALS: BP 151/92
[2021-08-12] MEDS: LACTULOSE 20 GM/30 ML UDCUP PO SCH ×3 (07:00→17:36)
[2021-08-12 08:00] VITALS: BP 166/69
[2021-08-12] MEDS: FOLIC ACID IV SCH (09:00)
[2021-08-12] MEDS: [UNRECOGNIZED DRUG - OTHER] IV SCH (09:00)
[2021-08-12] MEDS: THIAMINE HCL IV SCH (09:00)
[2021-08-12] MEDS: M V I IV SCH (09:00)
[2021-08-12] MEDS: PANTOPRAZOLE 40 MG TAB DR PO SCH (09:09)
[2021-08-12] MEDS: FOLIC ACID 1 MG TABLET PO SCH (09:09)
[2021-08-12] MEDS: CEFTRIAXONE 2GM VIAL IVP SCH (09:09)
[2021-08-12] MEDS: THIAMINE HCL 100 MG/ML 2ML VIAL IVP SCH (09:09)
[2021-08-12] MEDS: ACETAMINOPHEN 325 MG TAB PO PRN (09:11)
[2021-08-12 10:38] VITALS: BP 143/98
[2021-08-12] MEDS: TRAMADOL HCL 50 MG TABLET PO PRN (14:11)
[2021-08-12 14:32] LABS: HEMATOCRIT 26.6 % (42-54); MEAN CORPUSCULAR HEMOGLOBIN 31.9 pg (27.0-33.0); MEAN CORPUSCULAR HGB CONC 32.7 g/dL (32.0-36.0); MEAN CORPUSCULAR VOLUME 97.4 fL (79-99); RED BLOOD CELL COUNT(AUTO) 2.73 MIL/uL (4.50-6.20); RED CELL DISTRIBUTION WIDTH 18.5 % (11.0-15.5); WHITE BLOOD COUNT (AUTO) 4.4 K/uL (4.8-10.8)
[2021-08-12 15:23] VITALS: BP 127/97
[2021-08-12 20:29] VITALS: BP 143/85
[2021-08-12 23:21] VITALS: BP 146/91
[2021-08-13 04:19] VITALS: BP 130/60
[2021-08-13] MEDS: LACTULOSE 20 GM/30 ML UDCUP PO SCH ×3 (05:35→10:46)
[2021-08-13] MEDS: PANTOPRAZOLE 40 MG TAB DR PO SCH (05:35)
[2021-08-13 06:06] LABS: BASOPHILS % (AUTO) 0.9 % (0.0-5.0); EOSINOPHILS % (AUTO) 5.8 % (0.0-8.0); LYMPHOCYTES % (AUTO) 20.7 % (21.0-51.0); MEAN CORPUSCULAR HEMOGLOBIN 31.9 pg (27.0-33.0); MEAN CORPUSCULAR HGB CONC 33.8 g/dL (32.0-36.0); MEAN CORPUSCULAR VOLUME 94.5 fL (79-99); MONOCYTES % (AUTO) 11.7 % (3.0-13.0); NEUTROPHILS % (AUTO) 60.6 % (40.0-77.0); NUCLEATED RED BLOOD CELLS 0.6 % (0.0-0.19); PLATELET COUNT (AUTO) 56 K/uL (130-400); RED BLOOD CELL COUNT(AUTO) 2.54 MIL/uL (4.50-6.20); RED CELL DISTRIBUTION WIDTH 17.9 % (11.0-15.5); WHITE BLOOD COUNT (AUTO) 3.4 K/uL (4.8-10.8)
[2021-08-13 06:19] LABS: ASPARTATE AMINOTRANSFERASE 40 U/L (10-37); BILIRUBIN,TOTAL 4.2 mg/dL (0.2-1.0); CARBON DIOXIDE 22 mmol/L (21-32); CHLORIDE 102 mmol/L (101-111); CREATININE 0.9 mg/dL (0.5-1.5); GLOMERULAR FILTR. RATE CALC 97 mL/min (>60); GLUCOSE,RANDOM 105 mg/dL (70-105); POTASSIUM 3.7 mmol/L (3.5-5.1); SODIUM SERUM 130 mmol/L (136-145); TOTAL PROTEIN, SERUM 6.4 g/dL (6.0-8.3); UREA NITROGEN, BLOOD 8 mg/dL (7-18)
[2021-08-13 06:39] LABS: ALANINE AMINOTRANSFERASE < 6 U/L (12-78)
[2021-08-13 07:30] VITALS: BP 139/77
[2021-08-13] MEDS: FOLIC ACID 1 MG TABLET PO SCH (08:29)
[2021-08-13] MEDS: THIAMINE HCL 100 MG/ML 2ML VIAL IVP SCH (08:29)
[2021-08-13] MEDS: CEFTRIAXONE 2GM VIAL IVP SCH (08:29)
[2021-08-13] MEDS: TRAMADOL HCL 50 MG TABLET PO PRN (08:39)
[2021-08-13] MEDS: [UNRECOGNIZED DRUG - OTHER] IV SCH (10:42)
[2021-08-13] MEDS: THIAMINE HCL IV SCH (10:42)
[2021-08-13] MEDS: FOLIC ACID IV SCH (10:42)
[2021-08-13] MEDS: M V I IV SCH (10:42)
[2021-08-13 11:00] VITALS: BP 127/79
[2021-08-13] MEDS ORDERED: FOLI0.4T6 PO (12:28)
[2021-08-13] MEDS ORDERED: PANT40TA55 PO (12:28)
[2021-08-13] MEDS ORDERED: CEFD300C3 PO (12:28)
== END 2021-08-13 15:15 | disposition home or self-care (01) | DRG 432 ==
LOC: EDH 07:55 → EDHIP 07:56 → OBSVTOIN 07:56 → 4AH 16:22
PROVIDERS: ADMIT Hospitalist; ATTEND Hospitalist
PROC: 30233N1 Transfusion of Nonautologous Red Blood Cells into Peripheral Vein, Percutaneous Approach (ICD-10-PCS; 2021-08-09)
PROC: 06L38CZ Occlusion of Esophageal Vein with Extraluminal Device, Via Natural or Artificial Opening Endoscopic (ICD-10-PCS; principal; 2021-08-10)
DX: K70.31 Alcoholic cirrhosis of liver with ascites (principal); I85.11 Secondary esophageal varices with bleeding; D62 Acute posthemorrhagic anemia; D68.9 Coagulation defect, unspecified; K86.1 Other chronic pancreatitis; K76.6 Portal hypertension; D61.818 Other pancytopenia; F10.229 Alcohol dependence with intoxication, unspecified; D73.1 Hypersplenism; Y90.8 Blood alcohol level of 240 mg/100 ml or more; Z20.822 Contact with and (suspected) exposure to COVID-19; F32.A Depression, unspecified; D69.6 Thrombocytopenia, unspecified; I10 Essential (primary) hypertension; E11.9 Type 2 diabetes mellitus without complications; K21.00 Gastro-esophageal reflux disease with esophagitis, without bleeding; K29.00 Acute gastritis without bleeding; K31.89 Other diseases of stomach and duodenum; G40.909 Epilepsy, unspecified, not intractable, without status epilepticus; F43.10 Post-traumatic stress disorder, unspecified; Z87.11 Personal history of peptic ulcer disease; Z87.891 Personal history of nicotine dependence; Z91.14 Patient's other noncompliance with medication regimen; Z83.3 Family history of diabetes mellitus; Z82.3 Family history of stroke; Z80.9 Family history of malignant neoplasm, unspecified; Z82.49 Family history of ischemic heart disease and other diseases of the circulatory system
CPT/HCPCS: 36415; 36430; 43244; 71045; 73630; 74176; 76705; 76942; 80048; 80053; 80305; 81003; 82105; 82140; 82270; 82948; 83605; 83690; 84145; 85014; 85018; 85025; 85027; 85610; 85730; 86677; 86850; 86900; 86901; 86923; 87040; 87635; 87804; 97039; A4606; C1894; C9113; G0378; J0696; J1170; J2354; J2405; J2704; J3411; J3480; J3490; J7030; J7050; P9016; Q9967

== ENCOUNTER 2022-01-24 01:45 | Emergency (ER) | payer MEDICAID, OTHER ==
[~2022-01-24] VITALS: Ht 182.9 cm; Wt 83.0 kg
[~2022-01-24 01:45] MED LIST changes: +CEFD300C3 PO; -CIPR500T10 PO; +FOLI0.4T6 PO; -PANT40TA PO; +PANT40TA55 PO
[2022-01-24 03:25] VITALS: BP 116/66
[2022-01-24] MEDS ORDERED: IBUPROFEN 800 MG TAB PO ONE (03:30)
[2022-01-24] MEDS ORDERED: TIZA4CAP8 PO (03:50)
== END 2022-01-24 04:21 | disposition home or self-care (01) ==
LOC: EDH 01:45
DX: S39.012A Strain of muscle, fascia and tendon of lower back, initial encounter (principal); Z79.1 Long term (current) use of non-steroidal anti-inflammatories (NSAID); X58.XXXA Exposure to other specified factors, initial encounter; Y93.89 Activity, other specified; Y92.89 Other specified places as the place of occurrence of the external cause; Y99.8 Other external cause status
CPT/HCPCS: 72100

== ENCOUNTER 2022-02-03 09:02 | Emergency (ER) | payer OTHER ==
[~2022-02-03] VITALS: Ht 182.9 cm; Wt 97.5 kg
[~2022-02-03 09:02] MED LIST changes: +TIZA4CAP8 PO
[2022-02-03 10:58] VITALS: BP 113/60
[2022-02-03] MEDS ORDERED: NAPR-1196 PO (13:06)
== END 2022-02-03 13:23 | disposition home or self-care (01) ==
LOC: EDH 09:02
DX: S22.32XA Fracture of one rib, left side, initial encounter for closed fracture (principal); M25.552 Pain in left hip; Z79.899 Other long term (current) drug therapy; Z59.00 Homelessness unspecified; X58.XXXA Exposure to other specified factors, initial encounter; Y93.89 Activity, other specified; Y92.89 Other specified places as the place of occurrence of the external cause; Y99.8 Other external cause status
CPT/HCPCS: 71101; 73502

== ENCOUNTER 2022-03-07 19:15 | Inpatient (IN) | payer OTHER ==
[~2022-03-07] VITALS: Ht 180.3 cm; Wt 86.0 kg
[2022-03-07] MEDS: PANTOPRAZOLE 40MG INJ 80 MG in 0.9%NACL 100ML 100 ML IVP SCH (00:12)
[~2022-03-07 19:15] MED LIST changes: +NAPR-1196 PO
[2022-03-07 20:20] LABS: BASOPHILS % (AUTO) 1.4 % (0.0-5.0); EOSINOPHILS % (AUTO) 4.5 % (0.0-8.0); HEMATOCRIT 26.9 % (42-54); LYMPHOCYTES % (AUTO) 54.9 % (21.0-51.0); MEAN CORPUSCULAR HEMOGLOBIN 28.5 pg (27.0-33.0); MEAN CORPUSCULAR HGB CONC 32.3 g/dL (32.0-36.0); MEAN CORPUSCULAR VOLUME 88.2 fL (79-99); MONOCYTES % (AUTO) 7.3 % (3.0-13.0); NEUTROPHILS % (AUTO) 31.4 % (40.0-77.0); PLATELET COUNT (AUTO) 57 K/uL (130-400); RED BLOOD CELL COUNT(AUTO) 3.05 MIL/uL (4.50-6.20); RED CELL DISTRIBUTION WIDTH 21.4 % (11.0-15.5); WHITE BLOOD COUNT (AUTO) 4.4 K/uL (4.8-10.8)
[2022-03-07 20:29] LABS: CREATININE 1.4 mg/dL (0.5-1.5); POTASSIUM 3.8 mmol/L (3.5-5.1)
[2022-03-07 20:32] LABS: INR 1.32 (0.85-1.15); PROTHROMBIN TIME 14.2 SEC (9.6-11.6)
[2022-03-07 20:34] LABS: ALBUMIN 2.8 g/dL (3.5-5.0); BILIRUBIN,TOTAL 1.3 mg/dL (0.2-1.0); PARTIAL THROMBOPLASTIN TIME 27.4 SEC (26.3-35.5); TOTAL PROTEIN, SERUM 8.5 g/dL (6.0-8.3)
[2022-03-07 20:36] LABS: PLATELET MORPHOLOGY COMMENT DECREASED
[2022-03-07] MEDS ORDERED: OCTREOTIDE ACETATE 500 MCG in 0.9%NACL 100ML 97.5 ML IV SCH (22:00)
[2022-03-07] MEDS ORDERED: 0.9%NACL 1000ML 1,000 ML IV ONE ×2 (22:00→23:29)
[2022-03-07] MEDS ORDERED: M.V.I. IV [ADULT] 10 ML, FOLIC ACID 1 MG, THIAMINE HCL 100 MG in 0.9%NACL 1000ML 1,000 ML IV SCH (22:00)
[2022-03-07] MEDS ORDERED: OCTREOTIDE ACETATE 100 MCG/ML AMP IV SCH (22:00)
[2022-03-07] MEDS ORDERED: ONDANSETRON 4MG INJ IV PRN (22:00)
[2022-03-07] MEDS ORDERED: PANTOPRAZOLE 40 MG/VIAL IVP ONE (22:00)
[2022-03-07 22:40] LABS: % IRON SATURATION 6.7 % (30-44)
[2022-03-07] MEDS ORDERED: PANTOPRAZOLE 40 MG/VIAL ONE (23:26)
[2022-03-07] MEDS ORDERED: M.V.I. IV [ADULT] 10 ML VIAL IV ONE (23:27)
[2022-03-07] MEDS ORDERED: 0.9%NACL 100ML 100 ML ONE (23:29)
[2022-03-07] MEDS ORDERED: LORAZEPAM 2 MG/ML 1 ML VIAL IVP PRN ×2 (23:30)
[2022-03-07] MEDS ORDERED: PHARMACY COMMUNICATION MISC PRN (23:30)
[2022-03-07] MEDS ORDERED: FOLIC ACID 5 MG/ML VIAL ONE (23:30)
[2022-03-07] MEDS ORDERED: CHLORDIAZEPOXIDE HCL 25 MG CAP PO PRN (23:30)
[2022-03-07] MEDS ORDERED: THIAMINE HCL 100 MG/ML 2ML VIAL ONE (23:40)
[2022-03-08] MEDS ORDERED: OCTREOTIDE ACETATE 200 MCG/ML 5 ML VIAL ONE (00:04)
[2022-03-08 01:41] LABS: HEMATOCRIT 27.7 % (42-54)
[2022-03-08] MEDS ORDERED: MORPHINE 2 MG SYG IVP ONE (02:30)
[2022-03-08 06:15] LABS: BASOPHILS % (AUTO) 1.3 % (0.0-5.0); EOSINOPHILS % (AUTO) 5.2 % (0.0-8.0); HEMATOCRIT 27.6 % (42-54); LYMPHOCYTES % (AUTO) 56.2 % (21.0-51.0); MEAN CORPUSCULAR HEMOGLOBIN 28.5 pg (27.0-33.0); MEAN CORPUSCULAR HGB CONC 31.9 g/dL (32.0-36.0); MEAN CORPUSCULAR VOLUME 89.3 fL (79-99); MONOCYTES % (AUTO) 8.2 % (3.0-13.0); NEUTROPHILS % (AUTO) 28.7 % (40.0-77.0); PLATELET COUNT (AUTO) 50 K/uL (130-400); RED BLOOD CELL COUNT(AUTO) 3.09 MIL/uL (4.50-6.20); RED CELL DISTRIBUTION WIDTH 21.6 % (11.0-15.5); WHITE BLOOD COUNT (AUTO) 2.3 K/uL (4.8-10.8)
[2022-03-08 06:22] LABS: POTASSIUM 4.2 mmol/L (3.5-5.1)
[2022-03-08 06:58] LABS: EOSINOPHILS % (MANUAL) 3 % (1-6); LYMPHOCYTES % (MANUAL) 73 % (22-44); MAN.DIFF COMMENT-IMPRESSION MANUAL DIFFERENTIAL; MONOCYTES % (MANUAL) 1 % (2-9); PLATELET MORPHOLOGY COMMENT DECREASED; SEGMENTED NEUTROPHILS % 23 % (40-70)
[2022-03-08] MEDS: PANTOPRAZOLE 40MG INJ 80 MG in 0.9%NACL 100ML 100 ML IVP SCH (08:00)
[2022-03-08 08:30] VITALS: BP 123/77
[2022-03-08] MEDS: THIAMINE HCL 100 MG, FOLIC ACID 1 MG, M.V.I. IV [ADULT] 10 ML in 0.9%NACL 1000ML 1,000 ML IV SCH (09:00)
[2022-03-08] MEDS: CHLORDIAZEPOXIDE HCL 25 MG CAP PO PRN ×2 (10:41→22:50)
[2022-03-08] MEDS: RIFAXIMIN 550 MG TABLET PO SCH ×2 (10:42→20:27)
[2022-03-08] MEDS: LACTULOSE 20 GM/30 ML UDCUP PO SCH ×2 (10:42→20:27)
[2022-03-08] MEDS: CEFTRIAXONE 1G VIAL IVP SCH (10:42)
[2022-03-08 12:00] VITALS: BP 139/86
[2022-03-08 12:29] LABS: HEMATOCRIT 26.9 % (42-54)
[2022-03-08 16:00] VITALS: BP 147/85
[2022-03-08 17:50] LABS: HEMATOCRIT 28.8 % (42-54)
[2022-03-08] MEDS ORDERED: OCTREOTIDE ACETATE 1,250 MCG in 0.9% NACL 250ML 250 ML IV SCH (19:30)
[2022-03-08 20:00] VITALS: BP 135/81
[2022-03-08] MEDS: PANTOPRAZOLE 40 MG/VIAL IVP SCH (20:27)
[2022-03-09 08:00] VITALS: BP 129/81
[2022-03-09] MEDS ORDERED: COMPOUND IV REFRIGERATED 1 EACH IVSOLN MISC PRN (08:30)
[2022-03-09 08:38] LABS: BASOPHILS % (AUTO) 0.7 % (0.0-5.0); EOSINOPHILS % (AUTO) 5.9 % (0.0-8.0); HEMATOCRIT 29.2 % (42-54); LYMPHOCYTES % (AUTO) 48.9 % (21.0-51.0); MEAN CORPUSCULAR HEMOGLOBIN 28.4 pg (27.0-33.0); MEAN CORPUSCULAR HGB CONC 31.5 g/dL (32.0-36.0); MEAN CORPUSCULAR VOLUME 90.1 fL (79-99); MONOCYTES % (AUTO) 12.6 % (3.0-13.0); NEUTROPHILS % (AUTO) 31.9 % (40.0-77.0); PLATELET COUNT (AUTO) 36 K/uL (130-400); RED BLOOD CELL COUNT(AUTO) 3.24 MIL/uL (4.50-6.20); RED CELL DISTRIBUTION WIDTH 20.9 % (11.0-15.5); WHITE BLOOD COUNT (AUTO) 1.4 K/uL (4.8-10.8)
[2022-03-09] MEDS: LACTULOSE 20 GM/30 ML UDCUP PO SCH ×2 (08:46→21:37)
[2022-03-09] MEDS: RIFAXIMIN 550 MG TABLET PO SCH ×2 (08:46→21:37)
[2022-03-09] MEDS: CEFTRIAXONE 1G VIAL IVP SCH (08:46)
[2022-03-09] MEDS: PANTOPRAZOLE 40 MG/VIAL IVP SCH ×2 (08:46→21:37)
[2022-03-09 09:05] LABS: ALBUMIN 2.4 g/dL (3.5-5.0); AMMONIA 58 umol/L (11-32); ASPARTATE AMINOTRANSFERASE 50 U/L (10-37); BILIRUBIN,TOTAL 3.2 mg/dL (0.2-1.0); CARBON DIOXIDE 21 mmol/L (21-32); CHLORIDE 105 mmol/L (101-111); CREATININE 0.9 mg/dL (0.5-1.5); GLOMERULAR FILTR. RATE CALC 97 mL/min (>60); GLUCOSE,RANDOM 105 mg/dL (70-105); SODIUM SERUM 135 mmol/L (136-145); TOTAL PROTEIN, SERUM 7.7 g/dL (6.0-8.3); UREA NITROGEN, BLOOD 14 mg/dL (7-18)
[2022-03-09 09:07] LABS: ALANINE AMINOTRANSFERASE < 6 U/L (12-78)
[2022-03-09] MEDS: THIAMINE HCL 100 MG, FOLIC ACID 1 MG, M.V.I. IV [ADULT] 10 ML in 0.9%NACL 1000ML 1,000 ML IV SCH (09:56)
[2022-03-09 12:00] VITALS: BP 141/91
[2022-03-09 16:00] VITALS: BP 162/96
[2022-03-09 20:00] VITALS: BP 139/91
[2022-03-10 00:11] VITALS: BP 141/92
[2022-03-10 05:11] VITALS: BP 126/88
[2022-03-10 07:22] LABS: BASOPHILS % (AUTO) 0.6 % (0.0-5.0); EOSINOPHILS % (AUTO) 6.3 % (0.0-8.0); LYMPHOCYTES % (AUTO) 37.4 % (21.0-51.0); MEAN CORPUSCULAR HEMOGLOBIN 28.8 pg (27.0-33.0); MEAN CORPUSCULAR HGB CONC 32.5 g/dL (32.0-36.0); MEAN CORPUSCULAR VOLUME 88.6 fL (79-99); MONOCYTES % (AUTO) 13.8 % (3.0-13.0); NEUTROPHILS % (AUTO) 41.9 % (40.0-77.0); PLATELET COUNT (AUTO) 30 K/uL (130-400); RED BLOOD CELL COUNT(AUTO) 3.16 MIL/uL (4.50-6.20); RED CELL DISTRIBUTION WIDTH 20.1 % (11.0-15.5); WHITE BLOOD COUNT (AUTO) 1.7 K/uL (4.8-10.8)
[2022-03-10 07:36] LABS: POTASSIUM 4.1 mmol/L (3.5-5.1)
[2022-03-10 08:08] VITALS: BP 113/68
[2022-03-10] MEDS: PANTOPRAZOLE 40 MG/VIAL IVP SCH (08:47)
[2022-03-10] MEDS: CEFTRIAXONE 1G VIAL IVP SCH (08:47)
[2022-03-10] MEDS: LACTULOSE 20 GM/30 ML UDCUP PO SCH (08:48)
[2022-03-10] MEDS: RIFAXIMIN 550 MG TABLET PO SCH (08:48)
[2022-03-10 11:15] VITALS: BP 137/80
[2022-03-10] MEDS ORDERED: FOLI0.4T6 PO (12:15)
[2022-03-10] MEDS ORDERED: PANT40TA55 PO (12:15)
[2022-03-10] MEDS ORDERED: THIA100T75 PO (12:15)
[2022-03-10] MEDS ORDERED: CEFD300C3 PO (12:15)
[2022-03-11] MEDS ORDERED: FOLIC ACID 1 MG TABLET PO SCH (09:00)
== END 2022-03-10 16:47 | disposition home or self-care (01) | DRG 377 ==
LOC: EDH 19:15 → EDHIP 19:16 → 4AH 03-08 08:38
PROVIDERS: ADMIT Hospitalist; ATTEND Hospitalist
DX: K92.2 Gastrointestinal hemorrhage, unspecified (principal); K85.90 Acute pancreatitis without necrosis or infection, unspecified; D61.818 Other pancytopenia; N17.9 Acute kidney failure, unspecified; D64.9 Anemia, unspecified; Z91.19 Patient's noncompliance with other medical treatment and regimen; Z20.822 Contact with and (suspected) exposure to COVID-19; Z82.3 Family history of stroke; D69.59 Other secondary thrombocytopenia; K70.31 Alcoholic cirrhosis of liver with ascites; F10.10 Alcohol abuse, uncomplicated
CPT/HCPCS: 36415; 74176; 80048; 80053; 82140; 82550; 82728; 83540; 83550; 83690; 83735; 84484; 85014; 85018; 85025; 85610; 85730; 86850; 86900; 86901; 87635; 93005; C9113; G0378; J0696; J2354; J2405; J3411; J3490; J7030; J7050

== ENCOUNTER 2022-03-31 21:02 | Emergency (ER) | payer OTHER ==
[~2022-03-31] VITALS: Ht 180.3 cm; Wt 90.7 kg
[~2022-03-31 21:02] MED LIST changes: -NAPR-1196 PO; +THIA100T75 PO; -TIZA4CAP8 PO
[2022-03-31] MEDS ORDERED: DICYCLOMINE HCL 10 MG/5 ML ML PO ONE (21:30)
[2022-03-31] MEDS ORDERED: MAG/ALUM/SIMETH 30 ML UDCUP PO ONE (21:30)
[2022-03-31] MEDS ORDERED: LIDOCAINE HCL 2% VISCOUS 15 ML UDCUP PO ONE (21:30)
[2022-03-31] MEDS ORDERED: ONDANSETRON 4MG INJ IVP ONE (21:30)
[2022-03-31] MEDS ORDERED: FAMOTIDINE 20MG VIAL IV ONE (21:30)
[2022-03-31 21:32] LABS: EOSINOPHILS % (AUTO) 2.7 % (0.0-8.0); HEMATOCRIT 25.5 % (42-54); LYMPHOCYTES % (AUTO) 36.5 % (21.0-51.0); MEAN CORPUSCULAR HEMOGLOBIN 29.2 pg (27.0-33.0); MEAN CORPUSCULAR HGB CONC 32.5 g/dL (32.0-36.0); MEAN CORPUSCULAR VOLUME 89.8 fL (79-99); MONOCYTES % (AUTO) 7.4 % (3.0-13.0); NEUTROPHILS % (AUTO) 52.3 % (40.0-77.0); PLATELET COUNT (AUTO) 73 K/uL (130-400); RED BLOOD CELL COUNT(AUTO) 2.84 MIL/uL (4.50-6.20); RED CELL DISTRIBUTION WIDTH 22.1 % (11.0-15.5); WHITE BLOOD COUNT (AUTO) 6.9 K/uL (4.8-10.8)
[2022-03-31 21:48] LABS: POTASSIUM 3.9 mmol/L (3.5-5.1)
[2022-03-31 21:52] LABS: ALBUMIN 2.5 g/dL (3.5-5.0); BILIRUBIN,TOTAL 3.6 mg/dL (0.2-1.0); CRP QUANTITATIVE 9.9 mg/L (0.00-9.0)
[2022-03-31 21:54] LABS: B-TYPE NATRIURETIC PEPTIDE 196 pg/mL (0-100)
[2022-03-31] MEDS ORDERED: LACT10PA5 PO (22:26)
[2022-03-31] MEDS ORDERED: LACTULOSE 20 GM/30 ML UDCUP PO ONE (22:30)
[2022-03-31 22:48] VITALS: BP 105/60
== END 2022-03-31 22:49 | disposition home or self-care (01) ==
LOC: EDH 21:02
DX: A08.4 Viral intestinal infection, unspecified (principal); R18.8 Other ascites; D64.9 Anemia, unspecified; K74.60 Unspecified cirrhosis of liver
CPT/HCPCS: 36415; 71045; 74176; 80053; 82140; 82270; 83690; 83880; 84484; 85025; 86140; 96374; 96375; 99285; J2405; J3490

== ENCOUNTER 2022-04-06 19:32 | Inpatient (IN) | payer OTHER ==
[~2022-04-06] VITALS: Ht 180.3 cm; Wt 90.5 kg
[~2022-04-06 19:32] MED LIST changes: +LACT10PA5 PO
[2022-04-06] MEDS ORDERED: 0.9%NACL 1000ML 1,000 ML IV ONE (20:30)
[2022-04-06 20:33] LABS: BASOPHILS % (AUTO) 0.8 % (0.0-5.0); EOSINOPHILS % (AUTO) 4.6 % (0.0-8.0); HEMATOCRIT 24.4 % (42-54); LYMPHOCYTES % (AUTO) 38.8 % (21.0-51.0); MEAN CORPUSCULAR HEMOGLOBIN 30.7 pg (27.0-33.0); MEAN CORPUSCULAR HGB CONC 31.6 g/dL (32.0-36.0); MEAN CORPUSCULAR VOLUME 97.2 fL (79-99); MONOCYTES % (AUTO) 12.9 % (3.0-13.0); NEUTROPHILS % (AUTO) 42.4 % (40.0-77.0); PLATELET COUNT (AUTO) 34 K/uL (130-400); RED BLOOD CELL COUNT(AUTO) 2.51 MIL/uL (4.50-6.20); RED CELL DISTRIBUTION WIDTH 24.4 % (11.0-15.5); WHITE BLOOD COUNT (AUTO) 3.7 K/uL (4.8-10.8)
[2022-04-06 20:48] LABS: AMMONIA 52 umol/L (11-32); LIPASE 524 U/L (114-286)
[2022-04-06 20:49] LABS: CREATININE 1.2 mg/dL (0.5-1.5); POTASSIUM 3.7 mmol/L (3.5-5.1)
[2022-04-06 20:57] LABS: ALBUMIN 2.6 g/dL (3.5-5.0); TOTAL PROTEIN, SERUM 7.8 g/dL (6.0-8.3)
[2022-04-06 21:31] LABS: PLATELET MORPHOLOGY COMMENT MARKED DECREASE
[2022-04-06 21:51] LABS: INR 1.35 (0.85-1.15); PROTHROMBIN TIME 14.5 SEC (9.6-11.6)
[2022-04-06 21:53] LABS: PARTIAL THROMBOPLASTIN TIME 32.1 SEC (26.3-35.5)
[2022-04-06] MEDS ORDERED: ONDANSETRON 4MG INJ IV PRN (22:00)
[2022-04-06 23:33] LABS: APPEARANCE,URINE CLEAR (CLEAR); BILIRUBIN,URINE MODERATE (NEGATIVE); COLOR,URINE YELLOW (YELLOW); GLUCOSE, URINE (UA) NEGATIVE (NEGATIVE); KETONES,URINE 5 mg/dL (NEGATIVE); LEUKOCYTE ESTERASE ,URINE NEGATIVE (NEGATIVE); NITRATE,URINE NEGATIVE (NEGATIVE); OCCULT BLOOD,URINE MODERATE (NEGATIVE); PROTEIN,URINE TRACE mg/dL (NEGATIVE); UROBILINOGEN,URINE 0.2 mg/dL (0.2-1.0)
[2022-04-06 23:39] LABS: BACTERIA,URINE Moderate /HPF (None Seen); MUCUS,URINE Rare LPF (None Seen)
[2022-04-06 23:41] LABS: AMPHET/METH SCREEN,URINE NEGATIVE (NEGATIVE); BARBITURATE SCREEN, URINE NEGATIVE (NEGATIVE); BENZODIAZEPINES SCREEN,URINE POSITIVE (NEGATIVE); CANNABINOID SCREEN,URINE NEGATIVE (NEGATIVE); COCAINE SCREEN,URINE NEGATIVE (NEGATIVE); OPIATE SCREEN,URINE NEGATIVE (NEGATIVE); PHENCYCLIDINE SCREEN,URINE NEGATIVE (NEGATIVE)
[2022-04-07] MEDS ORDERED: LORAZEPAM 2 MG/ML 1 ML VIAL IVP PRN
[2022-04-07] MEDS ORDERED: CHLORDIAZEPOXIDE HCL 25 MG CAP PO PRN
[2022-04-07] MEDS ORDERED: PHARMACY COMMUNICATION MISC PRN
[2022-04-07] MEDS: CEFTRIAXONE 1G VIAL IVP SCH (00:43)
[2022-04-07 06:43] LABS: BASOPHILS % (AUTO) 1.1 % (0.0-5.0); EOSINOPHILS % (AUTO) 4.4 % (0.0-8.0); HEMATOCRIT 25.2 % (42-54); LYMPHOCYTES % (AUTO) 44.5 % (21.0-51.0); MEAN CORPUSCULAR HEMOGLOBIN 30.9 pg (27.0-33.0); MEAN CORPUSCULAR HGB CONC 31.7 g/dL (32.0-36.0); MEAN CORPUSCULAR VOLUME 97.3 fL (79-99); MONOCYTES % (AUTO) 18.1 % (3.0-13.0); NEUTROPHILS % (AUTO) 31.9 % (40.0-77.0); PLATELET COUNT (AUTO) 21 K/uL (130-400); RED BLOOD CELL COUNT(AUTO) 2.59 MIL/uL (4.50-6.20); RED CELL DISTRIBUTION WIDTH 23.9 % (11.0-15.5); WHITE BLOOD COUNT (AUTO) 1.8 K/uL (4.8-10.8)
[2022-04-07 07:01] LABS: CREATININE 0.9 mg/dL (0.5-1.5); MAGNESIUM 1.5 mg/dL (1.80-2.40); PHOSPHORUS 3.9 mg/dL (2.5-4.9); POTASSIUM 3.6 mmol/L (3.5-5.1)
[2022-04-07] MEDS ORDERED: M.V.I. IV [ADULT] 10 ML, FOLIC ACID 1 MG, THIAMINE HCL 100 MG in 0.9%NACL 1000ML 1,000 ML IV SCH (09:00)
[2022-04-07] MEDS ORDERED: MAGNESIUM 2GM PREMIX 50ML 50 ML IV SCH (09:30)
[2022-04-07] MEDS ORDERED: LACTULOSE 20 GM/30 ML UDCUP PO SCH (09:30)
[2022-04-07 09:54] LABS: ALCOHOL, BLOOD 200 mg/dL (0-10); AMMONIA 61 umol/L (11-32)
[2022-04-07] MEDS: FAMOTIDINE 20MG VIAL IV SCH ×2 (10:27→21:24)
[2022-04-07] MEDS: CYANOCOBALAMIN (VITAMIN B-12) 1,000 MCG TABLET PO SCH (11:00)
[2022-04-07] MEDS: PANTOPRAZOLE 40 MG/VIAL IVP SCH (11:00)
[2022-04-07] MEDS: RIFAXIMIN 550 MG TABLET PO SCH ×2 (11:00→21:24)
[2022-04-07 13:12] VITALS: BP 147/93
[2022-04-07 15:40] LABS: BASOPHILS % (AUTO) 0.6 % (0.0-5.0); EOSINOPHILS % (AUTO) 4.2 % (0.0-8.0); HEMATOCRIT 28.6 % (42-54); LYMPHOCYTES % (AUTO) 38.1 % (21.0-51.0); MEAN CORPUSCULAR HEMOGLOBIN 30.6 pg (27.0-33.0); MEAN CORPUSCULAR HGB CONC 31.1 g/dL (32.0-36.0); MEAN CORPUSCULAR VOLUME 98.3 fL (79-99); MONOCYTES % (AUTO) 23.8 % (3.0-13.0); NEUTROPHILS % (AUTO) 32.7 % (40.0-77.0); PLATELET COUNT (AUTO) 19 K/uL (130-400); RED BLOOD CELL COUNT(AUTO) 2.91 MIL/uL (4.50-6.20); RED CELL DISTRIBUTION WIDTH 23.8 % (11.0-15.5); WHITE BLOOD COUNT (AUTO) 1.7 K/uL (4.8-10.8)
[2022-04-07 16:00] VITALS: BP 164/87
[2022-04-07] MEDS ORDERED: ACETAMINOPHEN 500 MG TABLET PO ONE (16:30)
[2022-04-07] MEDS: LACTULOSE 20 GM/30 ML UDCUP PO SCH (16:57)
[2022-04-07 19:53] VITALS: BP 159/61
[2022-04-07 23:36] VITALS: BP 136/79
[2022-04-08] MEDS: CEFTRIAXONE 1G VIAL IVP SCH (01:32)
[2022-04-08] MEDS: LACTULOSE 20 GM/30 ML UDCUP PO SCH ×2 (02:10→09:20)
[2022-04-08 03:46] VITALS: BP 136/91
[2022-04-08 07:05] LABS: BASOPHILS % (AUTO) 0.6 % (0.0-5.0); HEMATOCRIT 24.7 % (42-54); LYMPHOCYTES % (AUTO) 40.4 % (21.0-51.0); MEAN CORPUSCULAR HEMOGLOBIN 30.6 pg (27.0-33.0); MEAN CORPUSCULAR VOLUME 95.7 fL (79-99); MONOCYTES % (AUTO) 22.9 % (3.0-13.0); NEUTROPHILS % (AUTO) 33.1 % (40.0-77.0); PLATELET COUNT (AUTO) 22 K/uL (130-400); RED BLOOD CELL COUNT(AUTO) 2.58 MIL/uL (4.50-6.20); RED CELL DISTRIBUTION WIDTH 23.9 % (11.0-15.5); WHITE BLOOD COUNT (AUTO) 1.7 K/uL (4.8-10.8)
[2022-04-08 07:22] LABS: ALBUMIN 2.3 g/dL (3.5-5.0); CREATININE 0.8 mg/dL (0.5-1.5); MAGNESIUM 1.4 mg/dL (1.80-2.40); POTASSIUM 3.8 mmol/L (3.5-5.1); TOTAL PROTEIN, SERUM 6.9 g/dL (6.0-8.3)
[2022-04-08 07:59] VITALS: BP 138/86
[2022-04-08] MEDS: RIFAXIMIN 550 MG TABLET PO SCH (09:20)
[2022-04-08] MEDS: CYANOCOBALAMIN (VITAMIN B-12) 1,000 MCG TABLET PO SCH (09:20)
[2022-04-08] MEDS: PANTOPRAZOLE 40 MG/VIAL IVP SCH (09:20)
[2022-04-08] MEDS: FAMOTIDINE 20MG VIAL IV SCH (09:20)
[2022-04-08] MEDS ORDERED: RIFA550T PO (11:49)
[2022-04-08] MEDS ORDERED: THIA250T9 PO (11:49)
[2022-04-08] MEDS ORDERED: PANT40TA54 PO (11:49)
[2022-04-08] MEDS ORDERED: FOLI0.4T6 PO (11:49)
[2022-04-08] MEDS ORDERED: LACT10PA5 PO (11:49)
[2022-04-08 12:00] VITALS: BP 163/91
== END 2022-04-08 16:00 | disposition home or self-care (01) | DRG 433 ==
LOC: EDH 19:32 → EDHIP 19:33 → 3AH 04-07 12:22
PROVIDERS: ADMIT Hospitalist; ATTEND Hospitalist
DX: K74.60 Unspecified cirrhosis of liver (principal); D61.818 Other pancytopenia; N39.0 Urinary tract infection, site not specified; R18.8 Other ascites; J90 Pleural effusion, not elsewhere classified; K72.90 Hepatic failure, unspecified without coma; Y90.8 Blood alcohol level of 240 mg/100 ml or more; F10.129 Alcohol abuse with intoxication, unspecified; Z20.822 Contact with and (suspected) exposure to COVID-19
CPT/HCPCS: 36415; 70450; 74176; 80048; 80053; 80305; 81001; 82140; 83690; 83735; 84100; 84484; 85025; 85610; 85730; 86850; 86900; 86901; 87077; 87088; 87186; 87635; 93005; C9113; G0378; J0696; J2405; J3411; J3475; J3490; J7030